=== PATIENT | male | born 1960 | race Caucasian/White ===

== ENCOUNTER 2018-06-01 12:02 | Emergency (ER) | payer OTHER ==
[~2018-06-01] VITALS: Ht 180.3 cm; Wt 95.3 kg
[~2018-06-01 12:02] MED LIST: ADDERALL 20 MG20 MG PO; PRAVASTATIN SOD20 MG PO; VIAGRA PO; VIIBRYD40 MG PO; XANAX1 MG PO
--- OUTSIDE RECORDS SUMMARY | 2018-06-01 12:06 | XMS REPORT | Clinical Summary ---
Author Author EDITH [facility] Organization [facility] Address Unknown Phone Unavailable Care Team Providers Care It Audit Manager Name Role Phone PCP Unavailable Allergies No Known Allergies Medications End Date Status Medication Sig Dispensed Refills Start Date Active dextroamphetamine-ampheta Take 20 mg by 0 mine (ADDERALL) 20 mg Tab mouth 2 (two) tablet times daily. Active ondansetron (ZOFRAN) 4 MG Take 4 mg by 0 tablet mouth 2 (two) times daily as needed for Nausea. Active dulaglutide (TRULICITY) Inject 0.75 0 0.75 mg/0.5 mL PnIj mg subcutaneousl y every 7 days. Active atorvastatin (LIPITOR) 10 Take 10 mg by 0 MG tablet mouth daily. Active insulin lispro (HUMALOG) Inject 0 100 unit/mL InPn subcutaneousl y 2 (two) times daily 35 units in am and 55 units in PM. Active vilazodone (VIIBRYD) 40 Take 40 mg by 0 mg tablet mouth daily. 12/30/2017 polyethylene glycol Take 17 g by 255 g 0 (GLYCOLAX) 17 gram/dose mouth daily 8 powder for 3 days. 01/06/2018 HYDROcodone-acetaminophen Take 1 tablet 30 tablet 0 (NORCO 10-325) 10-325 mg by mouth 8 per tablet every 6 (six) hours as needed for Pain for up to 10 days. Max Daily Amount: 4 tablets 01/01/2018 senna-docusate (SENOKOT Take 2 30 tablet 1 S) 8.6-50 mg per tablet tablets by 8 mouth daily as needed for Constipation for up to 5 days. 02/03/2018 Discontinued ARIPiprazole (ABILIFY) 15 Take 15 mg by 0 MG tablet mouth daily. 02/03/2018 Discontinued buPROPion (WELLBUTRIN XL) Take 150 mg 0 150 MG 24 hr tablet by mouth daily. 02/03/2018 Discontinued propranolol (INNOPRAN XL) Take 80 mg by 0 80 MG 24 hr capsule mouth nightly. 02/17/2018 methocarbamol (ROBAXIN) Take 1 tablet 40 tablet 0 750 MG tablet (750 mg 8 total) by mouth 4 (four) times daily for 10 days. Active Problems Problem Noted Date Loosening of hardware in spine 02/04/2018 Acute low back pain without sciatica, unspecified back pain laterality 01/29/2018 Lumbar pseudoarthrosis 2017 Lumbar spine instability 2017 Encounters Care Team Description Date Type Specialty Namrata Renner CRNA 02/04/2018 Anesthesia Event Wilbert Mcadams MD LAMINECTOMY, LUMBAR W/INTERNAL FIXATION 02/04/2018 Surgery Latoya Saldana MD Ropper, Alexander Eli, MD Acute low back pain without sciatica, unspecified back pain laterality (Primary Dx); Myalgia; Numbness; Pseudoarthrosis of lumbar spine; Lumbar pseudoarthrosis 02/03/2018 [facility] General Internal Medicine - Encounter 02/07/2018 Basilio Ross MD Sekhon, Navdeep Singh, MD Acute low back pain without sciatica, unspecified back pain laterality (Primary Dx) 01/29/2018 Emergency Emergency Medicine Wilbert Mcadams MD REMOVAL,SPINAL HARDWARE 2017 Surgery Estela Tilley MD 2017 Anesthesia Event Wilbert Mcadams MD Lumbar pseudoarthrosis (Primary Dx) 2017 [facility] General Internal Medicine - Encounter 12/27/2017 Wilbert Mcadams MD 12/18/2017 Hospital Pre-Admission Testing Encounter Wilbert Mcadams MD 12/08/2017 Orders Only Family Medicine after 05/31/2017 Social History Date Tobacco Use Types Packs/Day Years Used Quit: 12/11/2017 Former Smoker 0.5 40 Smokeless Tobacco: Never Used Tobacco Cessation: Counseling Given: Yes Alcohol Use Drinks/Week oz/Week Comments No Sex Assigned at Date Recorded Not on file Industry Job Start Date Occupation Not on file Not on file Not on file Travel End Travel History Travel Start No recent travel history available. Last Filed Vital Signs Time Taken Vital Sign Reading 02/07/2018 8:00 AM CDT Blood Pressure 109/60 02/07/2018 8:00 AM CDT Pulse 81 02/07/2018 8:00 AM CDT Temperature 36.7 C (98.1 F) 02/07/2018 8:00 AM CDT Respiratory Rate 18 02/07/2018 8:00 AM CDT Oxygen Saturation 98% - Inhaled Oxygen - Concentration 02/03/2018 11:44 PM CDT Weight 94.9 kg (209 lb 3.2 oz) 02/03/2018 11:44 PM CDT Height 180.3 cm (5' 11") 02/03/2018 11:44 PM CDT Body Mass Index 29.18 Plan of Treatment Not on file Implants Device Identifier Shelf Expiration Date Model / Serial / Lot Implanted Type Area Manufactur er 06/23/2019 [id number] / [id number] / Bone Grft Orthoblend 5cc Sm - Bone N/A: Spine MEDTRONIC: [id number] Lumbar SPINAL Implanted: Qty: 1 on 2017 by Wilbert Lal MD 12/11/2018 [id number] / / [id number] Infusion Set Bone Infuseii Lg Bone N/A: Spine MEDTRONIC: [id number] - [id number] Lumbar SPINAL Implanted: Qty: 1 on 2017 by Wilbert Canales MD 09/28/2019 [id number] / [id number] / Graft Bone Orthoblend 10cc [id number] - Bone N/A: Spine MEDTRONIC: [id number] Lumbar SPINAL Implanted: Qty: 1 on 02/04/2018 by Wilbert Lal MD 04/24/2019 [id number] / / [id number] [facility] Full Strlprep 10ml Cement/Freddie N/A: Spine FELTON:BIO [id number] - [id number] ler/Adhesi Lumbar SCI Implanted: Qty: 3 on 2017 by Wilbert Vasquez MD 09/09/2019 / / [id number] Bone Grft Vitoss Ba2x 10cc Cement/Freddie N/A: Spine ORTHOVITA - [id number] ler/Adhesi Lumbar Implanted: Qty: 1 on 2017 by Wilbert Vasquez MD 06/29/2019 [id number] / / [id number] Flseal Vhsd Full Strlprep 10ml Cement/Freddie N/A: Spine FELTON:BIO [id number] - [id number] ler/Adhesi Lumbar SCI Implanted: Qty: 1 on 02/04/2018 by Wilbert Vasquez MD 10/08/2019 [id number] / / [id number] Bone Grft Vitoss Ba2x 2.5cc - Cement/Freddie N/A: Spine ORTHOVITA [id number] ler/Adhesi Lumbar Implanted: Qty: 2 on 02/04/2018 by Wilbert Vasquez MD 04/11/2020 [id number] / / [id number] Cement Bone Surg Smplx P Full Cement/Freddie N/A: Spine MARIAH:ST [id number] - [id number] ler/Adhesi Lumbar SJ Implanted: Qty: 1 on 02/04/2018 by Wilbert Worley MD [id number] / / [id number] Scr [place] 3 Polyax 7.5x50mm Ti Spine N/A: Spine MARIAH:ST [id number] - [id number] Lumbar SJ Implanted: Qty: 4 on 2017 by Wilbert Kelly MD [id number] / / [id number] Barbed Fitting 3/8x3/8 [id number] - Spine N/A: Spine MARIAH:ST [id number] Lumbar SJ Implanted: Qty: 6 on 2017 by Wilbert Kelly MD [id number] / / [id number] Pipo Spine N/A: Spine MARIAH Implanted: Qty: 1 on 2017 by Lumbar SPINE Wilbert Mcadams MD [id number] / / [id number] Peek Cage 11 Width Spine N/A: Spine MARIAH Implanted: Qty: 1 on 2017 by Lumbar SPINE Wilbert Mcadams MD [id number] / / [id number] Peek Cage 11 Width Spine N/A: Spine MARIAH Implanted: Qty: 1 on 2017 by Lumbar SPINE Wilbert Mcadams MD [id number] / / [id number] Pipo Radius Rad 5.5x90mm [id number] - Spine N/A: Spine MARIAH:ST [id number] Lumbar SJ Implanted: Qty: 1 on 2017 by Wilbert Kelly MD [id number] / / [id number] Scr Chelsea 3 Polyax 7.5x40mm Ti Spine N/A: Spine MARIAH:ST [id number] - [id number] Lumbar SJ Implanted: Qty: 2 on 2017 by Wilbert Kelly MD [id number] / / Barbed Fitting 3/8x3/8 [id number] - Spine N/A: Spine MARIAH:ST [id number] Lumbar SJ Implanted: Qty: 6 on 02/04/2018 by Wilbert Kelly MD [id number] / / [id number] Pipo Radius Rad [id number] Spine N/A: Spine MARIAH:ST - [id number] Lumbar SJ Implanted: Qty: 1 on 02/04/2018 by Wilbert Kelly MD [id number] / / [id number] Viable Bone Matrix 5cc N/A: Spine MARIAH Implanted: Qty: 1 on 02/04/2018 by Wilbert Trent MD [id number] / / [id number] 9.5 X 40mm Poly Screw N/A: Spine MARIAH Implanted: Qty: 1 on 02/04/2018 by Wilbert Trent MD [id number] / / [id number] 10.5 X 40mm Poly Screw N/A: Spine MARIAH Implanted: Qty: 1 on 02/04/2018 by Wilbert Trent MD Procedures Comments Procedure Name Priority Date/Time Associated Diagnosis TRANSFUSION SERVICE 02/08/2018 REPORT - SCAN 5:50 PM CDT PREPARE LEUKO-REDUCED RBC STAT 02/07/2018 11:54 PM CDT TRANSFUSION SERVICE 02/07/2018 REPORT - SCAN 5:50 PM CDT POCT-GLUCOSE METER Routine 02/07/2018 8:09 AM CDT CBC W/PLT COUNT & AUTO SP 02/07/2018 DIFFERENTIAL 5:15 AM CDT CBC W/PLT COUNT & AUTO SP 02/07/2018 DIFFERENTIAL 5:15 AM CDT CBC W/PLT COUNT & AUTO STAT 02/06/2018 DIFFERENTIAL 9:09 PM CDT CBC W/PLT COUNT & AUTO STAT 02/06/2018 DIFFERENTIAL 9:09 PM CDT POCT-GLUCOSE METER Routine 02/06/2018 9:07 PM CDT TRANSFUSE LEUKO-REDUCED STAT 02/06/2018 RED BLOOD CELLS 7:53 PM CDT POCT-GLUCOSE METER Routine 02/06/2018 6:20 PM CDT POCT-GLUCOSE METER Routine 02/06/2018 12:24 PM CDT POCT-GLUCOSE METER Routine 02/06/2018 7:55 AM CDT HEMOGLOBIN AND HEMATOCRIT SP 02/06/2018 6:05 AM CDT POCT-GLUCOSE METER Routine 02/05/2018 9:01 PM CDT TRANSFUSION SERVICE 02/05/2018 REPORT - SCAN 5:50 PM CDT POCT-GLUCOSE METER Routine 02/05/2018 5:10 PM CDT CBC W/PLT COUNT & AUTO STAT 02/05/2018 DIFFERENTIAL 12:43 PM CDT CBC W/PLT COUNT & AUTO STAT 02/05/2018 DIFFERENTIAL 12:43 PM CDT POCT-GLUCOSE METER Routine 02/05/2018 12:38 PM CDT POCT-GLUCOSE METER Routine 02/05/2018 8:15 AM CDT CBC W/PLT COUNT & AUTO Routine 02/05/2018 DIFFERENTIAL 3:51 AM CDT BASIC METABOLIC PANEL (7) Routine 02/05/2018 3:51 AM CDT CBC W/PLT COUNT & AUTO Routine 02/05/2018 DIFFERENTIAL 3:51 AM CDT POCT-GLUCOSE METER Routine 02/04/2018 9:57 PM CDT POCT-GLUCOSE METER Routine 02/04/2018 6:18 PM CDT FL CEMENTING BULK MATERIAL OPERATOR IN OR 30 Routine 02/04/2018 MINUTE INCREMENTS 5:05 PM CDT LIMITED NEUROLOGICAL TCD Routine 02/04/2018 5:02 PM CDT TISSUE EXAM AP Routine 02/04/2018 4:49 PM CDT PROCEDURE W/ 02/04/2018 Spinal stenosis of lumbar INTRAOPERATIVE 12:45 PM CDT region, unspecified NEUROMONITORING whether neurogenic claudication present 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) Special Needs (PT IN PRONE POSITION, CHIDI TABLE, STYRKER, NEURO MONITORING :EMG) LAMINECTOMY,LUMBAR 02/04/2018 Spinal stenosis of lumbar W/DISCECTOMY 12:45 PM CDT region, unspecified whether neurogenic claudication present 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) Special Needs (PT IN PRONE POSITION, CHIDI TABLE, STYRKER, NEURO MONITORING :EMG) LAMINECTOMY, LUMBAR 02/04/2018 Spinal stenosis of lumbar W/INTERNAL FIXATION 12:45 PM CDT region, unspecified whether neurogenic claudication present 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) Special Needs (PT IN PRONE POSITION, CHIDI TABLE, STYRKER, NEURO MONITORING :EMG) POCT-GLUCOSE METER Routine 02/04/2018 12:44 PM CDT TYPE AND SCREEN, Routine 02/04/2018 AUTOMATED 5:30 AM CDT POCT-GLUCOSE METER Routine 02/03/2018 11:59 PM CDT CBC W/PLT COUNT & AUTO STAT 02/03/2018 DIFFERENTIAL 8:25 PM CDT PT/APTT STAT 02/03/2018 8:25 PM CDT BASIC METABOLIC PANEL (7) STAT 02/03/2018 8:25 PM CDT CBC W/PLT COUNT & AUTO STAT 02/03/2018 DIFFERENTIAL 8:25 PM CDT TRANSFUSION SERVICE 01/30/2018 REPORT - SCAN 5:53 PM CDT CBC W/PLT COUNT & AUTO STAT 01/29/2018 DIFFERENTIAL 6:24 PM CDT TYPE AND SCREEN, STAT 01/29/2018 AUTOMATED 6:24 PM CDT PT/APTT STAT 01/29/2018 6:24 PM CDT CBC W/PLT COUNT & AUTO STAT 01/29/2018 DIFFERENTIAL 6:[address] SPINE LUMBAR WITHOUT STAT 01/29/2018 IV CONTRAST 5:26 PM CDT BASIC METABOLIC PANEL (7) STAT 01/29/2018 4:35 PM CDT POCT-GLUCOSE METER Routine 12/27/2017 12:13 PM CDT POCT-GLUCOSE METER Routine 12/27/2017 7:56 AM CDT CBC (HEMOGRAM ONLY) Routine 12/27/2017 5:01 AM CDT BASIC METABOLIC PANEL (7) Routine 12/27/2017 5:01 AM CDT POCT-GLUCOSE METER Routine 12/26/2017 9:09 PM CDT POCT-GLUCOSE METER Routine 12/26/2017 5:28 PM CDT POCT-GLUCOSE METER Routine 12/26/2017 12:18 PM CDT POCT-GLUCOSE METER Routine 12/26/2017 8:33 AM CDT CBC (HEMOGRAM ONLY) Routine 12/26/2017 4:04 AM CDT BASIC METABOLIC PANEL (7) Routine 12/26/2017 4:04 AM CDT POCT-GLUCOSE METER Routine 12/25/2017 8:57 PM CDT POCT-GLUCOSE METER Routine 12/25/2017 5:46 PM CDT POCT-GLUCOSE METER Routine 12/25/2017 11:53 AM CDT POCT-GLUCOSE METER Routine 12/25/2017 7:58 AM CDT CBC (HEMOGRAM ONLY) Routine 12/25/2017 6:09 AM CDT BASIC METABOLIC PANEL (7) Routine 12/25/2017 6:09 AM CDT POCT-GLUCOSE METER Routine 2017 8:18 PM CDT POCT-GLUCOSE METER Routine 2017 6:33 PM CDT TRANSFUSION SERVICE 2017 REPORT - SCAN 5:54 PM CDT POCT-GLUCOSE METER Routine 2017 1:29 PM CDT LIMITED NEUROLOGICAL TCD Routine 2017 12:36 PM CDT FL CEMENTING BULK MATERIAL OPERATOR IN OR 30 Routine 2017 MINUTE INCREMENTS 12:27 PM CDT POCT-GLUCOSE METER Routine 2017 11:26 AM CDT TISSUE EXAM AP Routine 2017 10:33 AM CDT HGB/HCT (H&H) - STAT LAB STAT 2017 10:16 AM CDT LAMINECTOMY, LUMBAR 2017 Pain due to other W/INTERNAL FIXATION 7:00 AM CDT internal prosthetic devices, implants and grafts, initial encounter Special Needs (PRONE POSITION,N EUROMONITO RING: EMG, C-ARM, AQUAMANTYS , PROAXIS CHIDI TABLE, BOVIES X2, MARIAH, AESCULAP DRIVERS) PROCEDURE W/ 2017 Pain due to other INTRAOPERATIVE 7:00 AM CDT internal prosthetic NEUROMONITORING devices, implants and grafts, initial encounter Special Needs (PRONE POSITION,N EUROMONITO RING: EMG, C-ARM, AQUAMANTYS , PROAXIS CHIDI TABLE, BOVIES X2, MARIAH, AESCULAP DRIVERS) PROCEDURE W/ C-ARM 2017 Pain due to other 7:00 AM CDT internal prosthetic devices, implants and grafts, initial encounter Special Needs (PRONE POSITION,N EUROMONITO RING: EMG, C-ARM, AQUAMANTYS , PROAXIS CHIDI TABLE, BOVIES X2, MARIAH, AESCULAP DRIVERS) FUSION,TRANSFORAMINAL 2017 Pain due to other LUMBAR INTERBODY (TLIF) 7:00 AM CDT internal prosthetic devices, implants and grafts, initial encounter Special Needs (PRONE POSITION,N EUROMONITO RING: EMG, C-ARM, AQUAMANTYS , PROAXIS CHIDI TABLE, BOVIES X2, MARIAH, AESCULAP DRIVERS) REMOVAL,SPINAL HARDWARE 2017 Pain due to other 7:00 AM CDT internal prosthetic devices, implants and grafts, initial encounter Special Needs (PRONE POSITION,N EUROMONITO RING: EMG, C-ARM, AQUAMANTYS , PROAXIS CHIDI TABLE, BOVIES X2, MARIAH, AESCULAP DRIVERS) POCT-GLUCOSE METER Routine 2017 6:05 AM CDT PREPARE RBC Routine 12/23/2017 1:19 PM CDT TRANSFUSION SERVICE 12/19/2017 REPORT - SCAN 5:53 PM CDT TYPE AND SCREEN, Routine 12/18/2017 AUTOMATED 3:22 PM CDT after 05/31/2017 Results * TRANSFUSION SERVICE REPORT - SCAN (02/08/2018 5:50 PM CDT) Only the most recent of 6 results within the time period is included. Narrative Performed At * Prepare Leuko-Red RBC (02/07/2018 11:54 PM CDT) CROSSMATCH COMPATIBLE [facility]AFET[place] [place] Unit ABO A Pos [facility] [place] UNIT NUMBER [id number] [facility] [place] Status TRANSFUSED [facility] [place] Blood Bank Product RED BLOOD CELLS [facility] [place] PRODUCT CODE [id number] [facility] [place] CROSSMATCH COMPATIBLE SAFETRACE TX Unit ABO A Pos [facility] [place] UNIT NUMBER [id number] [facility] [place] Status TRANSFUSED [facility] [place] Blood Bank Product RED BLOOD CELLS [facility] [place] PRODUCT CODE [id number] [facility] [place] Specimen Other Performing Organization Address City/State/Zipcode Phone Number [place] [place] * POC-Glucose meter (02/07/2018 8:09 AM CDT) Only the most recent of 28 results within the time period is included. POC-Glucose Meter 164 (H)Comment: TESTED AT 70 - 110 mg/dL [facility] [address] [facility] [id number] Specimen Blood Performing Organization Address City/[facility]/Zipcode Phone Number [facility] [address] [place], [place] [id number] [facility] * CBC with platelet count + automated diff (02/07/2018 5:15 AM CDT) Only the most recent of 6 results within the time period is included. WBC 8.0 3.5 - 10.5 K/L [facility] RBC 2.85 (L) 4.63 - 6.08 M/L [facility] Hemoglobin 8.1 (L) 13.7 - 17.5 GM/DL [facility] Hematocrit 25.3 (L) 40.1 - 51.0 % [facility] MCV 88.8 79.0 - 92.2 fL [facility] MCH 28.4 25.7 - 32.2 pg [facility] MCHC 32.0 (L) 32.3 - 36.5 GM/DL [facility] RDW 14.6 (H) 11.6 - 14.4 % [facility] Platelets 302 150 - 450 K/CU MM [facility] MPV 9.3 (L) 9.4 - 12.4 fL [facility] nRBC 0 0 - 0 /100 WBC [facility] % Neutros 49 % [facility] % Lymphs 37 % [facility] % Monos 11 % [facility] % Eos 2 % [facility] % Baso 1 % [facility] # Neutros 3.87 1.78 - 5.38 K/L [facility] # Lymphs 2.95 1.32 - 3.57 K/L [facility] # Monos 0.84 (H) 0.30 - 0.82 K/L [facility] # Eos 0.15 0.04 - 0.54 K/L [facility] # Baso 0.06 0.01 - 0.08 K/L [facility] Immature 1 0 - 1 % [facility] Granulocytes-Relative [facility] Specimen Blood - Arm, Left Performing Organization Address City/[facility] [place] [address] [phone] [place] [address] * Transfuse Leuko-Red RBC (02/06/2018 7:53 PM CDT) Only the most recent of 2 results within the time period is included. * Hemoglobin and hematocrit (02/06/2018 6:05 AM CDT) Hemoglobin 6.5 (L) 13.7 - 17.5 GM/DL [facility] Hematocrit 21.0 (L) 40.1 - 51.0 % [facility] Specimen Blood - Arm, Left Performing Organization Address City/[facility] [place] [address] [phone] [place] [address] * Basic Metabolic Panel (02/05/2018 3:51 AM CDT) Only the most recent of 6 results within the time period is included. Sodium 136 136 - 145 meq/L [facility] Potassium 4.6 3.5 - 5.1 meq/L [facility] Chloride 104 98 - 107 meq/L [facility] CO2 26 22 - 29 meq/L [facility] BUN 18 7 - 21 mg/dL [facility] Creatinine 1.09 0.57 - 1.25 mg/dL [facility] Glucose 193 (H) 70 - 105 mg/dL [facility] Calcium 8.6 8.4 - 10.2 mg/dL [facility] EGFR 69Comment: ESTIMATED GFR IS mL/min/1.[address] [facility] NOT ACCURATE CREATININE [facility] CLEARANCE IN PREDICTING GLOMERULAR FILTRATION RATE. ESTIMATED GFR IS NOT APPLICABLE FOR DIALYSIS PATIENTS. Specimen Blood - Arm, Right Performing Organization Address City/State/Zipcode Phone Number [facility] [address] [place] [address] MEDICAL CENTER * [place] poultry grader in or 30 minute increments (02/04/2018 5:05 PM CDT) Only the most recent of 2 results within the time period is included. Narrative Performed At FINAL REPORT [facility] Fluoroscopy 2 views intraoperative 02/04/2018 5:14 PM CLINICAL HISTORY: Instrument localization COMPARISON: None available IMPRESSION: Please correlate imaging report findings with the procedure note prepared by Dr. Mcadams, as an intra-procedure imaging consultation was not requested. Reported fluoroscopy time: 6.4 seconds. Signed: Merritt Almaraz MD Report Verified Date/Time:02/04/2018 17:14:32 Reading Location: [facility] Radiology Reading Room Procedure Note Interface, External Ris In - 02/04/2018 5:16 PM CDT FINAL REPORT Fluoroscopy 2 views intraoperative 02/04/2018 5:14 PM CLINICAL HISTORY: Instrument localization COMPARISON: None available IMPRESSION: Please correlate imaging report findings with the procedure note prepared by Dr. Mcadams, as an intra-procedure imaging consultation was not requested. Reported fluoroscopy time: 6.4 seconds. Signed: Merritt Almaraz MD Report Verified Date/Time: 02/04/2018 17:14:32 Reading Location: [facility] Radiology Reading Room Performing Organization Address City/State/Zipcode Phone Number [facility] * Neuro intraoperative monitoring (02/04/2018 5:02 PM CDT) Narrative Performed At INTRAOPERATIVE MONITORING REPORT JEANNE UMAÑA Patient Name: Remberto Powers [facility] Surgery Date: 02/01/18 Anderson Pro:S/N - [id number] Monitoring began at 1428 and ended at 1701 Surgeon: Wilbert Mcadams M.D. Examining Physician : Oskar Agee M.D. Monitoring Technologist: KYREE Beach Procedure: L3-S1 redo of fixation & fusion Stimulation Parameters: Cortical screws stimulated by the surgeon Rate 2.1Hz, Intensity 0-20mA, Duration 0.2ms Filters 20-2KHz, Notch Off Free-running and triggered EMG of bilateral Vastus Lateralis (L2-4), Tibialis Anterior (L4-5), and Lateral Gastrocnemius (L5-S2) muscle groups. Description: Intraoperative neurophysiological monitoring was performed using free-running EMGs. A real- time connection with the examining neurologist was established and maintained throughout the operative procedure by the monitoring technologist. Free-running EMG of L2-S2 innervated muscle groups was monitored continuously throughout the operative procedure with no neurotonic discharges seen at baselines. Surgeon aware. Some sporadic EMG firing was present during procedure but at closing all EMG stable with baselines. Triggered EMG was performed via a sterile Prass probe held by the surgeon. The resulting intensity values required to elicit a response from each cortical screw was reported to the surgeon. Resulting intensity values required to elicit a response from each cortical screw placement were at least 9mA or above. Surgeon aware of all responses during the procedure and at closing of case. Conclusion: Absence of sustained neurotonic discharges on free-running EMG suggests that the nerve roots monitored remained undisturbed. Oskar Agee M.D M54.5, S32.009K Procedure Note Interface, External Ris In - 02/08/2018 3:17 PM CDT INTRAOPERATIVE MONITORING REPORT Patient Name: Remberto Powers [facility] Surgery Date: 02/01/18 Anderson Pro:S/N - [id number] Monitoring began at 1428 and ended at 1701 Surgeon: Wilbert Mcadams M.D. Examining Physician : Oskar Agee M.D. Monitoring Technologist: KYREE Beach Procedure: L3-S1 redo of fixation & fusion Stimulation Parameters: Cortical screws stimulated by the surgeon Rate 2.1Hz, Intensity 0-20mA, Duration 0.2ms Filters 20-2KHz, Notch Off Free-running and triggered EMG of bilateral Vastus Lateralis (L2-4), Tibialis Anterior (L4-5), and Lateral Gastrocnemius (L5-S2) muscle groups. Description: Intraoperative neurophysiological monitoring was performed using free-running EMGs. A real- time connection with the examining neurologist was established and maintained throughout the operative procedure by the monitoring technologist. Free-running EMG of L2-S2 innervated muscle groups was monitored continuously throughout the operative procedure with no neurotonic discharges seen at baselines. Surgeon aware. Some sporadic EMG firing was present during procedure but at closing all EMG stable with baselines. Triggered EMG was performed via a sterile Prass probe held by the surgeon. The resulting intensity values required to elicit a response from each cortical screw was reported to the surgeon. Resulting intensity values required to elicit a response from each cortical screw placement were at least 9mA or above. Surgeon aware of all responses during the procedure and at closing of case. Conclusion: Absence of sustained neurotonic discharges on free-running EMG suggests that the nerve roots monitored remained undisturbed. Oskar Agee M.D M54.5, S32.009K Performing Organization Address City/State/[facility] Phone Number [facility] * Tissue Exam (02/04/2018 4:49 PM CDT) Only the most recent of 2 results within the time period is included. Case Report Surgical Pathology [facility] Report [facility] Case: [id number] Authorizing Provider:Wilbert Mcadams MDCollected: 02/04/2018 1649 Ordering Location: [facility] PERIOPERATIVE Received: 02/05/2018 0814 SERVICES Pathologist: Roni Mayorga MD Specimen:Explant, PREVIOUS LUMBAR INSTRUMENTATION DIAGNOSIS HARDWARE, LUMBAR SPINE, [facility] REMOVAL: [facility] - HARDWARE (GROSS DIAGNOSIS) CB/DB/pl Signing Pathologist Direct Phone Line: [phone] CPT Code(s) 465[address] [facility] CLINICAL HISTORY Spinal stenosis of lumbar [facility] region, hardware failure of [facility] anterior column of spine SPECIMEN SOURCE Previous lumbar [facility] instrumentation [facility] GROSS DESCRIPTION Received fresh labeled [facility] "explant", description [facility] "previous lumbar instrumentation" are two metallic rods measuring 9.0 cm and 10.0 cm in length and 0.3 cm in diameter, two metallic screws each measuring 6.0 cm in length and 0.5 cm in diameter, and 6 metallic washers each measuring 1.0 cm in diameter. The specimen is for gross identification only. DB/pl Specimen Tissue - Explant Performing Organization Address [facility] [place] [address] [phone] [address] * Type and screen, automated (02/04/2018 5:30 AM CDT) Only the most recent of 3 results within the time period is included. ABO/RH AUTOMATED (BEAKER) A POSITIVE [facility] Ab Scrn NEGATIVE [facility] Specimen Blood Performing Organization Address City/[facility]/Zipcode Phone Number [address] [address] [facility] * PT/aPTT (02/03/2018 8:25 PM CDT) Only the most recent of 2 results within the time period is included. Protime 12.8 11.7 - 14.7 seconds [facility] INR 1.0 <=5.9 [facility] PTT 33.1 22.5 - 36.0 seconds [facility] Specimen Blood - Arm, Right Narrative Performed At RECOMMENDED COUMADIN/WARFARIN INR THERAPY RANGES [facility] STANDARD DOSE: 2.0 - 3.0 Includes: PROPHYLAXIS for venous thrombosis, [facility] systemic embolization; TREATMENT for venous thrombosis and/or pulmonary embolus. HIGH RISK: Target INR is 2.5-3.5 for patients with mechanical heart valves. Performing Organization Address City/State/Zipcode Phone Number [facility] [address] [place] [address] [facility] * CT spine lumbar without IV contrast (01/29/2018 5:26 PM CDT) Narrative Performed At FINAL REPORT [facility] CT Lumbar spine CLINICAL HISTORY: Low back pain, rapidly progressive neuro deficit BACK PAIN TECHNIQUE: Contiguous noncontrast axial images of the lumbar spine with coronal and sagittal reformations to assess the alignment. This exam was performed according to the departmental dose optimization program which includes automated exposure control, adjustment of the mA and/or kV according to the patient size, and/or use of an iterative reconstruction technique. COMPARISON: None FINDINGS: The patient is status post bilateral posterior spinal pipo and pedicle screw fusion of L3-S1; except at L5, where bilateral pedicle screws extend into the vertebral bodies, but are not connected to the spinal rods. Additionally, the right spinal pipo is discontinuous from the right S1 pedicle screw. Prominent lucency surrounding the bilateral S1 screws is compatible with either loosening or infection. Interbody strut grafts are seen at L3-L4, L4-L5, and L5-S1. One of the L2-L3 strut grafts extends 6 mm beyond the posterior vertebral body margin into the right lateral central canal. There is concavity of the S1 superior endplate below the strut graft, with subcortical lucency compatible with the fracture. The lumbar vertebral body heights are otherwise maintained. There are chronic fractures through the left L3 and L4 transverse processes. The lumbar curvature and alignment is maintained. There are decompressive laminectomies of L3-4, L4-L5, L5-S1. Please note that the central canal contents are not well evaluated due to the lack of intrathecal contrast and metallic streak effect. There are postoperative edema changes in the midline lower back soft tissues. IMPRESSION: Status post L3-S1 fusion as discussed above. Specifically, lucency surrounding the bilateral S1 pedicle screws is compatible with either loosening versus infection. The right S1 pedicle screws disconnected from the spinal pipo, as are the bilateral L5 screws. A L2-L3 strut graft extends posteriorly into the dorsal right central canal. S1 superior endplate compression fracture underlying the strut graft. Signed: Susu Roy MD Report Verified Date/Time:01/29/2018 17:55:20 Reading Location: [facility] Radiology Reading Room Procedure Note Interface, External Ris In - 01/29/2018 5:57 PM CDT FINAL REPORT CT Lumbar spine CLINICAL HISTORY: Low back pain, rapidly progressive neuro deficit BACK PAIN TECHNIQUE: Contiguous noncontrast axial images of the lumbar spine with coronal and sagittal reformations to assess the alignment. This exam was performed according to the departmental dose optimization program which includes automated exposure control, adjustment of the mA and/or kV according to the patient size, and/or use of an iterative reconstruction technique. COMPARISON: None FINDINGS: The patient is status post bilateral posterior spinal pipo and pedicle screw fusion of L3-S1; except at L5, where bilateral pedicle screws extend into the vertebral bodies, but are not connected to the spinal rods. Additionally, the right spinal pipo is discontinuous from the right S1 pedicle screw. Prominent lucency surrounding the bilateral S1 screws is compatible with either loosening or infection. Interbody strut grafts are seen at L3-L4, L4-L5, and L5-S1. One of the L2-L3 strut grafts extends 6 mm beyond the posterior vertebral body margin into the right lateral central canal. There is concavity of the S1 superior endplate below the strut graft, with subcortical lucency compatible with the fracture. The lumbar vertebral body heights are otherwise maintained. There are chronic fractures through the left L3 and L4 transverse processes. The lumbar curvature and alignment is maintained. There are decompressive laminectomies of L3-4, L4-L5, L5-S1. Please note that the central canal contents are not well evaluated due to the lack of intrathecal contrast and metallic streak effect. There are postoperative edema changes in the midline lower back soft tissues. IMPRESSION: Status post L3-S1 fusion as discussed above. Specifically, lucency surrounding the bilateral S1 pedicle screws is compatible with either loosening versus infection. The right S1 pedicle screws disconnected from the spinal pipo, as are the bilateral L5 screws. A L2-L3 strut graft extends posteriorly into the dorsal right central canal. S1 superior endplate compression fracture underlying the strut graft. Signed: Susu Roy MD Report Verified Date/Time: 01/29/2018 17:55:20 Reading Location: [facility] Radiology Reading Room Performing Organization Address City/State/Zipcode Phone Number [facility] * CBC (Hemogram only) (12/27/2017 5:01 AM CDT) Only the most recent of 3 results within the time period is included. WBC 8.2 3.5 - 10.5 K/L [facility] RBC 2.59 (L) 4.63 - 6.08 M/L [facility] Hemoglobin 8.5 (L) 13.7 - 17.5 GM/DL [facility] Hematocrit 25.0 (L) 40.1 - 51.0 % [facility] MCV 96.5 (H) 79.0 - 92.2 fL [facility] MCH 32.8 (H) 25.7 - 32.2 pg [facility] MCHC 34.0 32.3 - 36.5 GM/DL [facility] RDW 13.2 11.6 - 14.4 % [facility] Platelets 201 150 - 450 K/CU MM [facility] MPV 9.7 9.4 - 12.4 fL [facility] nRBC 0 0 - 0 /100 WBC [facility] Specimen Blood Performing Organization Address City/State/Zipcode Phone Number [facility] [address] [place] [address] [facility] * Neuro intraoperative monitoring (2017 12:36 PM CDT) Narrative Performed At INTRAOPERATIVE MONITORING REPORT JEANNE UMAÑA Patient Name: Remberto Powers [facility] Surgery Date: 2017 Youneeq Pro: [id number] Monitoring began at 650 and ended at 1236 Surgeon: Wilbert Mcadams MD Examining Physician : Oskar Agee MD Monitoring Technologists: KYREE Santos Procedure: Revision, Fusion L3-S1 Stimulation Parameters: Pedicle/Cortical screws individually stimulated by the surgeon Rate 2.1Hz, Intensity 0-20mA, Duration 0.2ms Filters 20-2KHz, Notch Off Free-running and Triggered EMG of Vastus Lateralis (L2-4), Tibialis Anterior (L4-5), and Lateral Gastrocnemius (L5-S2) muscle groups. Description : Intraoperative neurophysiological monitoring was performed using a combination of free-running and Triggered EMG and Free-running EMGs. A real-time connection with the examining neurologist was established and maintained throughout the operative procedure by the monitoring technologist. Pedicle/Cortical Screw Triggered EMG was performed following the placement of screw via a sterile Prass probe held by the surgeon. The resulting intensity values required to elicit a response from each placement were reported to the surgeon. Free-running EMG of L2-S2 innervated muscle groups was monitored continuously throughout the operative procedure with some sporadic neurotonic emg activity that was reported to the surgeon. At closing, all EMG was quiet and responses were judged to be essentially unchanged from those of post-positioning baselines. Conclusion : These results suggest the absence of untoward, secondary effects on posterior column function as a consequence of this surgical procedure. All values elicited by triggered EMG to verify pedicle screw placement and nerve root function were reported to the surgeon. Surgeon aware of all responses during case and at closing. Oskar Agee MD S32.009K Procedure Note Interface, External Ris In - 01/27/2018 10:42 AM CDT INTRAOPERATIVE MONITORING REPORT Patient Name: Remberto Powers [facility] Surgery Date: 2017 Vladislav Pro: [id number] Monitoring began at 650 and ended at 1236 Surgeon: Wilbert Mcadams MD Examining Physician : Oskar Agee MD Monitoring Technologists: KYREE Santos Procedure: Revision, Fusion L3-S1 Stimulation Parameters: Pedicle/Cortical screws individually stimulated by the surgeon Rate 2.1Hz, Intensity 0-20mA, Duration 0.2ms Filters 20-2KHz, Notch Off Free-running and Triggered EMG of Vastus Lateralis (L2-4), Tibialis Anterior (L4-5), and Lateral Gastrocnemius (L5-S2) muscle groups. Description : Intraoperative neurophysiological monitoring was performed using a combination of free-running and Triggered EMG and Free-running EMGs. A real-time connection with the examining neurologist was established and maintained throughout the operative procedure by the monitoring technologist. Pedicle/Cortical Screw Triggered EMG was performed following the placement of screw via a sterile Prass probe held by the surgeon. The resulting intensity values required to elicit a response from each placement were reported to the surgeon. Free-running EMG of L2-S2 innervated muscle groups was monitored continuously throughout the operative procedure with some sporadic neurotonic emg activity that was reported to the surgeon. At closing, all EMG was quiet and responses were judged to be essentially unchanged from those of post-positioning baselines. Conclusion : These results suggest the absence of untoward, secondary effects on posterior column function as a consequence of this surgical procedure. All values elicited by triggered EMG to verify pedicle screw placement and nerve root function were reported to the surgeon. Surgeon aware of all responses during case and at closing. Oskar Agee MD S32.009K Performing Organization Address City/State/Zipcode Phone Number [facility] * HGB/HCT (H&H)-Stat Lab (2017 10:16 AM CDT) Hemoglobin 13.1 13.0 - 16.8 g/dL [facility] Hematocrit 39.0 (L) 40.0 - 50.0 % [facility] Specimen Blood, Arterial Performing Organization Address City/[facility]/Zipcode Phone Number [facility] [address] [place] [address] MED[facility] * Prepare RBC (12/23/2017 1:19 PM CDT) CROSSMATCH COMPATIBLE SAFETRACE TX Unit ABO A Pos SAFETRACE TX UNIT NUMBER [id number] SAFETRACE TX Status READY SAFETRACE TX Blood Bank Product RED BLOOD CELLS SAFETRACE TX PRODUCT CODE [id number] SAFETRACE TX CROSSMATCH COMPATIBLE SAFETRACE TX Unit ABO A Pos SAFETRACE TX UNIT NUMBER [id number] SAFETRACE TX Status READY SAFETRACE TX Blood Bank Product RED BLOOD CELLS SAFETRACE TX PRODUCT CODE [id number] SAFETRACE TX Performing Organization Address City/[facility]/Zipcode Phone Number SAFETRACE [place] after 05/31/2017 Insurance Payer Benefit Subscriber ID Type Phone Address Plan / Group [facility] xxxxxxxxx HMO/POS CARE POS SELECT CHOICE Advance Directives For more information, please contact: [address] [phone] Date Inactivated Comments Code Status Date Activated 02/08/2018 5:43 AM Full Code 02/03/2018 11:38 PM This code status was determined by: Patient 12/27/2017 6:55 PM Full Code 2017 8:26 PM This code status was determined by: Patient 2017 8:26 PM Full Code 2017 5:57 AM This code status was determined by: Patient
--- OUTSIDE RECORDS SUMMARY | 2018-06-01 12:07 | XMS REPORT | CCD ---
Author Author Auto Generated Organization [facility] Address Unknown Phone Unavailable Care Team Providers Care Supervisor Wound Name Role Phone Harman Mcdonald CP Allergies, Adverse Reactions, Alerts Substance Reaction Status NKDA Active Problem List Condition Effective Dates Status ADHD - Attention deficit disorder with hyperactivity Resolved Pain Active Medications Medication Instructions Start Date End Date Status Lactated Ringers IV 1,000 mL, Rate: 125 ml/hr, Infuse 08/08/2013 08/10/2013 Discontinued 1,000 mL over: 8 hr, Route: IV, Dosing Weight 86.364 kg, Total Volume: 1,000, Start date: 08/08/13 23:26:00, Duration: 30 day, Stop date: 09/07/13 23:25:00 Saline Flush 0.9% 5 ml, Route: IVP, Drug Form: INJ, 08/09/2013 08/10/2013 Discontinued Dosing Weight 86.364, kg, PRN, PRN Line Flush, Start date: 08/09/13 2:57:00, Duration: 30 day, Stop date: 09/08/13 2:56:00(Same as: BD Posiflush) acetaminophen-hydroc 1 tab, Route: PO, Drug Form: TAB, 08/09/2013 08/10/2013 Discontinued odone 325 mg-10 mg Dosing Weight 86.364, kg, Q4H, PRN oral tablet Pain Score 4-6, Start date: 08/09/13 2:57:00, Duration: 30 day, Stop date: 09/08/13 2:56:00Do not exceed 4gm/day of acetaminophen. (Same as: [place] 325/10) docusate 100 mg, 1 cap, Route: PO, Drug 08/09/2013 08/10/2013 Discontinued form: CAP, BID, Dosing Weight 86.364, kg, PRN Constipation, Start date: 08/09/13 2:57:00, Duration: 30 day, Stop date: 09/08/13 2:56:00(Same as: Colace) (Do Not Crush) morphine Sulfate 2 mg, 1 mL, Route: IVP, Drug form: 08/09/2013 08/10/2013 Discontinued INJ, Q3H, Dosing Weight 86.364, kg, PRN Pain Score 4-6, Start date: 08/09/13 2:57:00, Duration: 30 day, Stop date: 09/08/13 2:56:00(Same as:MORPhine Sulfate) ondansetron 4 mg, 2 mL, Route: IVP, Drug form: 08/09/2013 08/10/2013 Discontinued INJ, Q8H, Dosing Weight 86.364, kg, PRN Nausea & Vomiting, Start date: 08/09/13 2:57:00, Duration: 30 day, Stop date: 09/08/13 2:56:00(Same as: Zofran) vilazodone 40 mg 0 Refill(s) 08/09/2013 Ordered oral tablet NS (Bolus) IV 1,000 1,000 mL, Rate: 1,000 ml/hr, Infuse 08/08/2013 08/08/2013 Completed mL over: 1 hr, Route: IV, Dosing Weight 86.364 kg, Total Volume: 1,000, Priority: STAT, Start date: 08/08/13 18:50:00, Duration: 1 doses or times, Stop date: 08/08/13 19:49:00, Bolus Dose Bolus Dose Zofran 4 mg, 2 mL, Route: IVP, Drug form: 08/08/2013 08/09/2013 Completed INJ, ONCE, Dosing Weight 86.364, kg, Priority: STAT, Start date: 08/08/13 18:50:00, Stop date: 08/08/13 18:50:00(Same as: Zofran) morphine Sulfate 4 mg, 2 mL, Route: IVP, Drug form: 08/08/2013 08/09/2013 Completed INJ, ONCE, Dosing Weight 86.364, kg, Priority: STAT, Start date: 08/08/13 18:50:00, Stop date: 08/08/13 18:50:00(Same as:MORPhine Sulfate) Silvadene 1% topical 1 appl, Route: TOP, ONCE, Drug 08/08/2013 08/08/2013 Completed cream form: CRM, Priority: Stat, Start date: 08/08/13 18:50:00, Stop date: 08/08/13 18:50:00(Same as: Silvadene) NS (Bolus) IV 1,000 1,000 mL, Rate: 1,000 ml/hr, Infuse 08/08/2013 08/09/2013 Completed mL over: 1 hr, Route: IV, Dosing Weight 86.364 kg, Total Volume: 1,000, Priority: STAT, Start date: 08/08/13 23:24:00, Duration: 1 doses or times, Stop date: 08/09/13 0:23:00, Bolus Dose Bolus Dose pneumococcal 0.5 ml, Route: IM, Drug Form: INJ, 08/10/2013 08/10/2013 Canceled 23-valent vaccine Daily, Start date: 08/10/13 9:00:00, Duration: 1 doses or times, Stop date: 08/10/13 9:00:00(Same as: Pneumovax 23) Refrigerate Tylenol 975 mg, Route: PO, Drug form: TAB, 08/08/2013 08/08/2013 Completed ONCE, Dosing Weight 86.364, kg, Priority: STAT, Start date: 08/08/13 21:07:00, Stop date: 08/08/13 21:07:00 Vital Signs Most recent to oldest [Reference Range]: 1 2 3 Height 180.34 cm (08/09/2013 03:15:00) 180.34 cm (08/08/2013 18:41:00) Temperature Oral [96.4-99.1 DegF] 98.3 DegF (08/09/2013 20:00:00) 98 DegF (08/09/2013 16:00:00) 97.6 DegF (08/09/2013 12:00:00) Systolic Blood Pressure [90-140 mmHg] 135 mmHg (08/09/2013 20:00:00) 143 mmHg *HI* (08/09/2013 16:00:00) 130 mmHg (08/09/2013 12:00:00) Diastolic Blood Pressure [60-90 mmHg] 68 mmHg (08/09/2013 20:00:00) 84 mmHg (08/09/2013 16:00:00) 78 mmHg (08/09/2013 12:00:00) Respiratory Rate [14-20 BRMIN] 18 BRMIN (08/09/2013 20:00:00) 20 BRMIN (08/09/2013 16:00:00) 16 BRMIN (08/09/2013 12:00:00) Peripheral Pulse Rate [60-100 bpm] 61 bpm (08/09/2013 20:00:00) 63 bpm (08/09/2013 16:00:00) 68 bpm (08/09/2013 12:00:00) Weight 86.364 kg (08/09/2013 03:15:00) 86.364 kg (08/08/2013 18:41:00) Results CHEMISTRY Most recent to oldest [Reference Range]: 1 2 Sodium Lvl [135-145 mEq/L] 141 mEq/L (08/09/2013 05:53:00) 142 mEq/L (08/08/2013 18:37:00) Potassium Lvl [3.5-5.1 mEq/L] 4.0 mEq/L (08/09/2013 05:53:00) 4.1 mEq/L (08/08/2013 18:37:00) Chloride Lvl [95-109 mEq/L] 107 mEq/L (08/09/2013 05:53:00) 105 mEq/L (08/08/2013 18:37:00) CO2 [24-32 mEq/L] 27 mEq/L (08/09/2013 05:53:00) 26 mEq/L (08/08/2013 18:37:00) AGAP [10.0-20.0 mEq/L] 11.0 mEq/L (08/09/2013 05:53:00) 15.1 mEq/L (08/08/2013 18:37:00) Creatinine Lvl [0.5-1.4 mg/dL] 1.0 mg/dL (08/09/2013 05:53:00) 1.0 mg/dL (08/08/2013 18:37:00) eGFR 86 mL/min/1.73m2 1 *NA* (08/09/2013 05:53:00) 86 mL/min/1.73m2 2 *NA* (08/08/2013 18:37:00) BUN [7-22 mg/dL] 10 mg/dL (08/09/2013 05:53:00) 11 mg/dL (08/08/2013 18:37:00) B/C Ratio [6-25] 10 (08/09/2013 05:53:00) 11 (08/08/2013 18:37:00) Glucose Lvl [70-99 mg/dL] 99 mg/dL 3 (08/09/2013 05:53:00) 132 mg/dL 4 *HI* (08/08/2013 18:37:00) Total Protein [6.4-8.4 g/dL] 6.1 g/dL *LOW* (08/09/2013 05:53:00) 7.9 g/dL (08/08/2013 18:37:00) Albumin Lvl [3.5-5.0 g/dL] 3.1 g/dL *LOW* (08/09/2013 05:53:00) 3.9 g/dL (08/08/2013 18:37:00) Globulin [2.0-4.0 g/dL] 3.0 g/dL (08/09/2013 05:53:00) 4.0 g/dL (08/08/2013 18:37:00) A/G Ratio [0.7-1.6] 1.0 (08/09/2013 05:53:00) 1.0 (08/08/2013 18:37:00) Calcium Lvl [8.5-10.5 mg/dL] 8.4 mg/dL *LOW* (08/09/2013 05:53:00) 8.8 mg/dL (08/08/2013 18:37:00) ALT [0-65 unit/L] 27 unit/L (08/09/2013 05:53:00) 32 unit/L (08/08/2013 18:37:00) AST [0-37 unit/L] 21 unit/L (08/09/2013 05:53:00) 22 unit/L (08/08/2013 18:37:00) Alk Phos [39-136 unit/L] 70 unit/L (08/09/2013 05:53:00) 81 unit/L (08/08/2013 18:37:00) Bili Total [0.2-1.3 mg/dL] 0.5 mg/dL (08/09/2013 05:53:00) 0.3 mg/dL (08/08/2013 18:37:00) Lactic Acid Lvl [0.5-2.2 mMol/L] 1.2 mMol/L (08/08/2013 00:16:00) Total CK [12-191 unit/L] 310 unit/L *HI* (08/08/2013 00:16:00) 1Result Comment: The eGFR is calculated using the CKD-EPI formula. In most young, healthy individuals the eGFR will be >90 mL/min/1.73m2. The eGFR declines with age. An eGFR of 60-89 may be normal in some populations, particularly the elderly, for whom the CKD-EPI formula has not been extensively validated. Use of the eGFR is not recommended in the following populations: Individuals with unstable creatinine concentrations, including patients and those with serious co-morbid conditions. Patients with extremes in muscle mass or diet. The data above are obtained from the National Kidney Disease Education Program ( NKDEP) which additionally recommends that when the eGFR is used in patients with extremes of body mass index for purposes of drug dosing, the eGFR should be mul tiplied by the estimated BMI. 2Result Comment: The eGFR is calculated using the CKD-EPI formula. In most young, healthy individuals the eGFR will be >90 mL/min/1.73m2. The eGFR declines with age. An eGFR of 60-89 may be normal in some populations, particularly the elderly, for whom the CKD-EPI formula has not been extensively validated. Use of the eGFR is not recommended in the following populations: Individuals with unstable creatinine concentrations, including patients and those with serious co-morbid conditions. Patients with extremes in muscle mass or diet. The data above are obtained from the National Kidney Disease Education Program ( NKDEP) which additionally recommends that when the eGFR is used in patients with extremes of body mass index for purposes of drug dosing, the eGFR should be mul tiplied by the estimated BMI. 3Interpretive Data: Adult reference range values reflect the clinical guidelines of the [place] [employer]. 4Interpretive Data: Adult reference range values reflect the clinical guidelines of the [place] [employer]. HEMATOLOGY Most recent to oldest [Reference Range]: 1 2 WBC [3.7-10.4 K/CMM] 8.0 K/CMM (08/09/2013 05:53:00) 16.3 K/CMM *HI* (08/08/2013 18:37:00) RBC [4.70-6.10 M/CMM] 3.61 M/CMM *LOW* (08/09/2013 05:53:00) 4.32 M/CMM *LOW* (08/08/2013 18:37:00) Hgb [14.0-18.0 g/dL] 11.4 g/dL *LOW* (08/09/2013 05:53:00) 13.5 g/dL *LOW* (08/08/2013 18:37:00) Hct [42.0-54.0 %] 34.4 % *LOW* (08/09/2013 05:53:00) 40.7 % *LOW* (08/08/2013 18:37:00) MCV [80.0-94.0 fL] 95.4 fL *HI* (08/09/2013 05:53:00) 94.1 fL *HI* (08/08/2013 18:37:00) MCH [27.0-31.0 pg] 31.5 pg *HI* (08/09/2013 05:53:00) 31.2 pg *HI* (08/08/2013 18:37:00) MCHC [32.0-36.0 g/dL] 33.0 g/dL (08/09/2013 05:53:00) 33.2 g/dL (08/08/2013 18:37:00) RDW [11.5-14.5 %] 13.4 % (08/09/2013 05:53:00) 13.0 % (08/08/2013 18:37:00) Platelet [133-450 K/CMM] 292 K/CMM (08/09/2013 05:53:00) 345 K/CMM (08/08/2013 18:37:00) MPV [7.4-10.4 fL] 7.1 fL *LOW* (08/09/2013 05:53:00) 7.3 fL *LOW* (08/08/2013 18:37:00) Segs [45.0-75.0 %] 52.3 % (08/09/2013 05:53:00) 75.0 % (08/08/2013 18:37:00) Bands [0.0-11.0 %] 8.0 % (08/08/2013 18:37:00) Lymphocytes [20.0-40.0 %] 35.8 % (08/09/2013 05:53:00) 12.0 % *LOW* (08/08/2013 18:37:00) Monocytes [2.0-12.0 %] 9.9 % (08/09/2013 05:53:00) 4.0 % (08/08/2013 18:37:00) Eosinophils [0.0-4.0 %] 1.6 % (08/09/2013 05:53:00) 1.0 % (08/08/2013 18:37:00) Basophils [0.0-1.0 %] 0.4 % (08/09/2013 05:53:00) Segs-Bands # [1.5-8.1 K/CMM] 4.2 K/CMM (08/09/2013 05:53:00) 13.5 K/CMM *HI* (08/08/2013 18:37:00) Lymphocytes # [1.0-5.5 K/CMM] 2.9 K/CMM (08/09/2013 05:53:00) 2.0 K/CMM (08/08/2013 18:37:00) Monocytes # [0.0-0.8 K/CMM] 0.8 K/CMM (08/09/2013 05:53:00) 0.7 K/CMM (08/08/2013 18:37:00) Eosinophils # [0.0-0.5 K/CMM] 0.1 K/CMM (08/09/2013 05:53:00) 0.2 K/CMM (08/08/2013 18:37:00) Basophils # [0.0-0.2 K/CMM] 0.0 K/CMM (08/09/2013 05:53:00) RBC Morph Normal (08/08/2013 18:37:00) Plt Morph Normal (08/08/2013 18:37:00) IMMUNOLOGY Most recent to oldest [Reference Range]: 1 2 CDC HIV 4th GEN [Negative] Negative (08/08/2013 00:16:00) Procedures Procedures Date Related Diagnosis Anesthesia for arthroscopic procedure of knee joint1 Procedure on back 1bilateral
--- OUTSIDE RECORDS SUMMARY | 2018-06-01 12:07 | XMS REPORT ---
Author Author [facility] Address Unknown Phone Unavailable Care Team Providers Care Hotel Reservation Agent Name Role Phone SIRENA BORRERO Unavailable Unavailable MARU QUINTANILLA Unavailable Unavailable ELENA MACKENZIE Unavailable Unavailable Problems This patient has no known problems. Allergies, Adverse Reactions, Alerts This patient has no known allergies or adverse reactions. Medications This patient has no known medications. Results Test Description Test Time Test Comments Text Results Atomic Results Result Comments SENIOR PRIVATE CLIENT ADVISOR, NEURO INTRAOPERATIVE MONITORING 2018-02-08 15:17:00 Reason for exam:->intra op neuro monitoring INTRAOPERATIVE MONITORING REPORT Patient Name: Kareen Powers [facility] Surgery Date: 02/01/18 [place] Pro:S/N - [id number] Monitoring began at 1428 and ended at 1701 Surgeon: Wilbert Mackenzie M.D. Examining Physician : Oskar Agee M.D. [...] remained undisturbed. Oskar Agee M.D M54.5, S32.009K UE EXAM 2018-02-08 14:56:00 Surgical Pathology Report Case: [id number] Authorizing Provider: Wilbert Mackenzie MD Collected: 02/04/2018 1649 Ord ering Location: [facility] PERIOPERATIVE Received: 02/05/2018 0814 SERVICES Pathologist: Roni Mayorga MD Specimen: Explant, PREVIOUS LUMBAR INSTRUMENTATION HARDWARE, LUMBAR SPINE, REMOVAL: - HARDWARE (GROSS DIAGNOSIS)CB/DB/pl Signing Pathologist Direct Phone Line: [phone] signed by Roni Mayorga MD on 02/08/2018 at 2:56 [id number] stenosis of lumbar region, hardware failure of anterior column of spine Previous lumbar instrumentationReceived fresh labeled "explant", description "previous lumbar instrumentation" are two metallic rods measuring 9.0 cm and 10.0 cm in length and 0.3 cm in diameter, two metallic screws each measuring 6.0 cm in length and 0.5 cm in diameter, and 6 metallic washers each measuring 1.0 cm in diameter. The specimen is for gross identification only. DB/pl POCT-GLUCOSE METER 2018-02-07 08:19:00 POC-GLUCOSE METER (BEAKER) (test lprq=3736) 164 mg/dL 70-110 TESTED AT [facility] [address] [facility] [address] CBC W/PLT COUNT & AUTO [id number] 06:09:00* Test Item Value Reference Range Comments WHITE BLOOD CELL COUNT (BEAKER) (test jedg=334) 8.0 K/ L 3.5-10.5 RED BLOOD CELL COUNT (BEAKER) (test ksrn=522) 2.85 M/ L 4.63-6.08 HEMOGLOBIN (BEAKER) (test tqot=426) 8.1 GM/DL 13.7-17.5 HEMATOCRIT (BEAKER) (test zoqe=259) 25.3 % 40.1-51.0 MEAN CORPUSCULAR VOLUME (BEAKER) (test vqhh=118) 88.8 fL 79.0-92.2 MEAN CORPUSCULAR HEMOGLOBIN (BEAKER) (test lsmh=281) 28.4 pg 25.7-32.2 MEAN CORPUSCULAR HEMOGLOBIN CONC (BEAKER) (test ojcy=336) 32.0 GM/DL 32.3-36.5 RED CELL DISTRIBUTION WIDTH (BEAKER) (test iopi=456) 14.6 % 11.6-14.4 PLATELET COUNT (BEAKER) (test qruw=590) 302 K/CU MM 150-450 MEAN PLATELET VOLUME (BEAKER) (test qjth=437) 9.3 fL 9.4-12.4 NUCLEATED RED BLOOD CELLS (BEAKER) (test goax=114) 0 /100 WBC 0-0 NEUTROPHILS RELATIVE PERCENT (BEAKER) (test jxmc=275) 49 % LYMPHOCYTES RELATIVE PERCENT (BEAKER) (test uonj=030) 37 % MONOCYTES RELATIVE PERCENT (BEAKER) (test bylg=385) 11 % EOSINOPHILS RELATIVE PERCENT (BEAKER) (test mwyy=985) 2 % BASOPHILS RELATIVE PERCENT (BEAKER) (test jxnp=564) 1 % NEUTROPHILS ABSOLUTE COUNT (BEAKER) (test rwbk=854) 3.87 K/ L 1.78-5.38 LYMPHOCYTES ABSOLUTE COUNT (BEAKER) (test svkq=954) 2.95 K/ L 1.32-3.57 MONOCYTES ABSOLUTE COUNT (BEAKER) (test tstx=494) 0.84 K/ L 0.30-0.82 EOSINOPHILS ABSOLUTE COUNT (BEAKER) (test tbju=062) 0.15 K/ L 0.04-0.54 BASOPHILS ABSOLUTE COUNT (BEAKER) (test ttlk=342) 0.06 K/ L 0.01-0.08 IMMATURE GRANULOCYTES-RELATIVE PERCENT (BEAKER) (test uvmz=6380) 1 % 0-1 CBC W/PLT COUNT & AUTO [id number] 21:17:00* Test Item Value Reference Range Comments WHITE BLOOD CELL COUNT (BEAKER) (test ayif=543) 9.0 K/ L 3.5-10.5 RED BLOOD CELL COUNT (BEAKER) (test hbtl=558) 2.76 M/ L 4.63-6.08 HEMOGLOBIN (BEAKER) (test qntd=100) 8.2 GM/DL 13.7-17.5 HEMATOCRIT (BEAKER) (test gmvt=613) 25.0 % 40.1-51.0 MEAN CORPUSCULAR VOLUME (BEAKER) (test fsmn=950) 90.6 fL 79.0-92.2 MEAN CORPUSCULAR HEMOGLOBIN (BEAKER) (test xwlb=180) 29.7 pg 25.7-32.2 MEAN CORPUSCULAR HEMOGLOBIN CONC (BEAKER) (test htws=297) 32.8 GM/DL 32.3-36.5 RED CELL DISTRIBUTION WIDTH (BEAKER) (test qyrs=116) 14.6 % 11.6-14.4 PLATELET COUNT (BEAKER) (test tlya=282) 309 K/CU MM 150-450 MEAN PLATELET VOLUME (BEAKER) (test dhva=582) 9.1 fL 9.4-12.4 NUCLEATED RED BLOOD CELLS (BEAKER) (test ysiy=370) 0 /100 WBC 0-0 NEUTROPHILS RELATIVE PERCENT (BEAKER) (test wtrj=221) 54 % LYMPHOCYTES RELATIVE PERCENT (BEAKER) (test zphm=167) 34 % MONOCYTES RELATIVE PERCENT (BEAKER) (test yewz=519) 10 % EOSINOPHILS RELATIVE PERCENT (BEAKER) (test edzv=342) 2 % BASOPHILS RELATIVE PERCENT (BEAKER) (test wftj=927) 1 % NEUTROPHILS ABSOLUTE COUNT (BEAKER) (test dref=680) 4.82 K/ L 1.78-5.38 LYMPHOCYTES ABSOLUTE COUNT (BEAKER) (test titl=890) 3.04 K/ L 1.32-3.57 MONOCYTES ABSOLUTE COUNT (BEAKER) (test umsv=525) 0.86 K/ L 0.30-0.82 EOSINOPHILS ABSOLUTE COUNT (BEAKER) (test ppua=150) 0.15 K/ L 0.04-0.54 BASOPHILS ABSOLUTE COUNT (BEAKER) (test ilhy=620) 0.06 K/ L 0.01-0.08 IMMATURE GRANULOCYTES-RELATIVE PERCENT (BEAKER) (test toxf=0035) 1 % 0-1 POCT-GLUCOSE [id number] 21:13:00* Test Item Value Reference Range Comments POC-GLUCOSE METER (BEAKER) (test qanu=4145) 147 mg/dL 70-110 TESTED AT [address] [address] POCT-GLUCOSE [id number] 18:29:00* Test Item Value Reference Range Comments POC-GLUCOSE METER (BEAKER) (test qcfo=0389) 111 mg/dL 70-110 TESTED AT [address] [address] POCT-GLUCOSE [id number] 12:28:00* Test Item Value Reference Range Comments POC-GLUCOSE METER (BEAKER) (test pufn=7770) 103 mg/dL 70-110 TESTED AT [address] [address] POCT-GLUCOSE [id number] 08:01:00* Test Item Value Reference Range Comments POC-GLUCOSE METER (BEAKER) (test klmj=2393) 145 mg/dL 70-110 TESTED AT [address] [address] HEMOGLOBIN AND [id number] 06:46:00* Test Item Value Reference Range Comments HEMOGLOBIN (BEAKER) (test eldc=210) 6.5 GM/DL 13.7-17.5 HEMATOCRIT (BEAKER) (test whrs=866) 21.0 % 40.1-51.0 POCT-GLUCOSE [id number] 21:15:00* Test Item Value Reference Range Comments POC-GLUCOSE METER (BEAKER) (test mvkb=6198) 121 mg/dL 70-110 TESTED AT [address] [address] POCT-GLUCOSE [id number] 17:12:00* Test Item Value Reference Range Comments POC-GLUCOSE METER (BEAKER) (test awav=2023) 163 mg/dL 70-110 TESTED AT [address] [address] CBC W/PLT COUNT & AUTO [id number] 13:52:00* Test Item Value Reference Range Comments WHITE BLOOD CELL COUNT (BEAKER) (test ncek=428) 14.0 K/ L 3.5-10.5 RED BLOOD CELL COUNT (BEAKER) (test xjli=108) 2.47 M/ L 4.63-6.08 HEMOGLOBIN (BEAKER) (test vdia=550) 7.0 GM/DL 13.7-17.5 HEMATOCRIT (BEAKER) (test lzar=122) 22.7 % 40.1-51.0 MEAN CORPUSCULAR VOLUME (BEAKER) (test argd=149) 91.9 fL 79.0-92.2 MEAN CORPUSCULAR HEMOGLOBIN (BEAKER) (test ixxb=431) 28.3 pg 25.7-32.2 MEAN CORPUSCULAR HEMOGLOBIN CONC (BEAKER) (test dgkz=845) 30.8 GM/DL 32.3-36.5 RED CELL DISTRIBUTION WIDTH (BEAKER) (test miif=836) 14.3 % 11.6-14.4 PLATELET COUNT (BEAKER) (test krkb=468) 308 K/CU MM 150-450 MEAN PLATELET VOLUME (BEAKER) (test kunm=487) 8.8 fL 9.4-12.4 NUCLEATED RED BLOOD CELLS (BEAKER) (test lrcd=268) 0 /100 WBC 0-0 NEUTROPHILS RELATIVE PERCENT (BEAKER) (test cvse=171) 74 % LYMPHOCYTES RELATIVE PERCENT (BEAKER) (test sbri=225) 16 % MONOCYTES RELATIVE PERCENT (BEAKER) (test nlnv=262) 8 % EOSINOPHILS RELATIVE PERCENT (BEAKER) (test xqkj=675) 0 % BASOPHILS RELATIVE PERCENT (BEAKER) (test zqjh=574) 1 % NEUTROPHILS ABSOLUTE COUNT (BEAKER) (test bgyh=497) 10.35 K/ L 1.78-5.38 LYMPHOCYTES ABSOLUTE COUNT (BEAKER) (test ukdz=055) 2.27 K/ L 1.32-3.57 MONOCYTES ABSOLUTE COUNT (BEAKER) (test rlty=748) 1.15 K/ L 0.30-0.82 EOSINOPHILS ABSOLUTE COUNT (BEAKER) (test wcsk=551) 0.01 K/ L 0.04-0.54 BASOPHILS ABSOLUTE COUNT (BEAKER) (test yhzz=137) 0.07 K/ L 0.01-0.08 IMMATURE GRANULOCYTES-RELATIVE PERCENT (BEAKER) (test wzep=0480) 1 % 0-1 POCT-GLUCOSE [id number] 13:37:00* Test Item Value Reference Range Comments POC-GLUCOSE METER (BEAKER) (test whyj=0544) 100 mg/dL 70-110 TESTED AT [facility] [address] [facility] [address] POCT-GLUCOSE [id number] 08:25:00* Test Item Value Reference Range Comments POC-GLUCOSE METER (BEAKER) (test swqi=2470) 190 mg/dL 70-110 TESTED AT [facility] [address] [facility] [address] BASIC METABOLIC [id number] 04:37:00* Test Item Value Reference Range Comments SODIUM (BEAKER) (test bipm=083) 136 meq/L 136-145 POTASSIUM (BEAKER) (test ewsn=163) 4.6 meq/L 3.5-5.1 CHLORIDE (BEAKER) (test aipq=436) 104 meq/L 98-107 CO2 (BEAKER) (test xfea=492) 26 meq/L 22-29 BLOOD UREA NITROGEN (BEAKER) (test lbnv=514) 18 mg/dL 7-21 CREATININE (BEAKER) (test iadw=799) 1.09 mg/dL 0.57-1.25 GLUCOSE RANDOM (BEAKER) (test vyfp=458) 193 mg/dL 70-105 CALCIUM (BEAKER) (test hsgs=369) 8.6 mg/dL 8.4-10.2 EGFR (BEAKER) (test patk=9455) 69 mL/min/1.73 sq m ESTIMATED GFR IS NOT ACCURATE CREATININE CLEARANCE IN PREDICTING GLOMERULAR FILTRATION RATE. ESTIMATED GFR IS NOT APPLICABLE FOR DIALYSIS PATIENTS. CBC W/PLT COUNT & AUTO [id number] 04:03:00* Test Item Value Reference Range Comments WHITE BLOOD CELL COUNT (BEAKER) (test aava=070) 11.2 K/ L 3.5-10.5 RED BLOOD CELL COUNT (BEAKER) (test dpax=185) 2.66 M/ L 4.63-6.08 HEMOGLOBIN (BEAKER) (test tvkm=538) 7.6 GM/DL 13.7-17.5 HEMATOCRIT (BEAKER) (test qwgv=595) 24.6 % 40.1-51.0 MEAN CORPUSCULAR VOLUME (BEAKER) (test kppu=171) 92.5 fL 79.0-92.2 MEAN CORPUSCULAR HEMOGLOBIN (BEAKER) (test dkvm=643) 28.6 pg 25.7-32.2 MEAN CORPUSCULAR HEMOGLOBIN CONC (BEAKER) (test qeep=730) 30.9 GM/DL 32.3-36.5 RED CELL DISTRIBUTION WIDTH (BEAKER) (test diij=139) 14.0 % 11.6-14.4 PLATELET COUNT (BEAKER) (test kuwy=931) 306 K/CU MM 150-450 MEAN PLATELET VOLUME (BEAKER) (test kftc=553) 9.3 fL 9.4-12.4 NUCLEATED RED BLOOD CELLS (BEAKER) (test eyci=813) 0 /100 WBC 0-0 NEUTROPHILS RELATIVE PERCENT (BEAKER) (test noaw=549) 84 % LYMPHOCYTES RELATIVE PERCENT (BEAKER) (test mpyo=923) 11 % MONOCYTES RELATIVE PERCENT (BEAKER) (test uglk=035) 5 % EOSINOPHILS RELATIVE PERCENT (BEAKER) (test lttq=431) 0 % BASOPHILS RELATIVE PERCENT (BEAKER) (test hiua=097) 0 % NEUTROPHILS ABSOLUTE COUNT (BEAKER) (test wyqq=635) 9.44 K/ L 1.78-5.38 LYMPHOCYTES ABSOLUTE COUNT (BEAKER) (test lflf=008) 1.17 K/ L 1.32-3.57 MONOCYTES ABSOLUTE COUNT (BEAKER) (test xmoz=026) 0.51 K/ L 0.30-0.82 EOSINOPHILS ABSOLUTE COUNT (BEAKER) (test yhqa=904) 0.00 K/ L 0.04-0.54 BASOPHILS ABSOLUTE COUNT (BEAKER) (test zqnn=472) 0.02 K/ L 0.01-0.08 IMMATURE GRANULOCYTES-RELATIVE PERCENT (BEAKER) (test tzhv=6313) 0 % 0-1 POCT-GLUCOSE [id number] 21:58:00* Test Item Value Reference Range Comments POC-GLUCOSE METER (BEAKER) (test ldks=1835) 252 mg/dL 70-110 TESTED AT [facility] [address] [facility] [address] POCT-GLUCOSE [id number] 18:20:00* Test Item Value Reference Range Comments POC-GLUCOSE METER (BEAKER) (test czxv=5834) 179 mg/dL 70-110 TESTED AT [place] [id number] [facility] [address] [place], C.O.D. CLERK IN OR/30 MINUTE [id number] 17:14:00Reason for exam:->back painFINAL REPORT Fluoroscopy 2 views intraoperative 02/04/2018 5:14 PM CLINICAL HISTORY: Instrument localization COMPARISON: None available IMPRESSION: Please correlate imaging report findings with the procedure note prepared by Dr. Mackenzie, as an intra-procedure imaging consultation was not requested. Reported fluoroscopy time: 6.4 seconds. Signed: Merritt Almaraz Verified Date/Time: 02/04/2018 17:14:32 Reading Location: [facility] Radiology Reading Room -GLUCOSE [id number] 12:47:00* Test Item Value Reference Range Comments POC-GLUCOSE METER (BEAKER) (test mwbz=7827) 121 mg/dL 70-110 TESTED AT [facility] [address] [facility] [address] POCT-GLUCOSE [id number] 00:04:00* Test Item Value Reference Range Comments POC-GLUCOSE METER (BEAKER) (test xwdh=3497) 124 mg/dL 70-110 TESTED AT [place] [address] [facility] [address] BASIC METABOLIC [id number] 20:45:00* Test Item Value Reference Range Comments SODIUM (BEAKER) (test zzqh=916) 139 meq/L 136-145 POTASSIUM (BEAKER) (test hwuc=887) 3.6 meq/L 3.5-5.1 CHLORIDE (BEAKER) (test ecmj=246) 103 meq/L 98-107 CO2 (BEAKER) (test ywwi=488) 30 meq/L 22-29 BLOOD UREA NITROGEN (BEAKER) (test kcyc=326) 14 mg/dL 7-21 CREATININE (BEAKER) (test ceff=258) 1.27 mg/dL 0.57-1.25 GLUCOSE RANDOM (BEAKER) (test tyzd=323) 69 mg/dL 70-105 CALCIUM (BEAKER) (test tyzk=070) 9.8 mg/dL 8.4-10.2 EGFR (BEAKER) (test umhp=1813) 58 mL/min/1.73 sq m ESTIMATED GFR IS NOT ACCURATE CREATININE CLEARANCE IN PREDICTING GLOMERULAR FILTRATION RATE. ESTIMATED GFR IS NOT APPLICABLE FOR DIALYSIS PATIENTS. [id number] 20:40:00* Test Item Value Reference Range Comments PROTIME (BEAKER) (test rrxf=648) 12.8 seconds 11.7-14.7 INR (BEAKER) (test ypki=678) 1.0 <=5.9 PARTIAL THROMBOPLASTIN TIME (BEAKER) (test vlwe=027) 33.1 seconds 22.5-36.0 RECOMMENDED COUMADIN/WARFARIN INR THERAPY RANGESSTANDARD DOSE: 2.0 - 3.0 Inclu cathryn: PROPHYLAXIS for venous thrombosis, systemic embolization; TREATMENT for karlie ous thrombosis and/or pulmonary embolus.HIGH RISK: Target INR is 2.5-3.5 for pat ients with mechanical heart valves.CBC W/PLT COUNT & AUTO [id number] 20:31:00* Test Item Value Reference Range Comments WHITE BLOOD CELL COUNT (BEAKER) (test buba=010) 8.4 K/ L 3.5-10.5 RED BLOOD CELL COUNT (BEAKER) (test lbzc=724) 3.60 M/ L 4.63-6.08 HEMOGLOBIN (BEAKER) (test luwh=357) 10.3 GM/DL 13.7-17.5 HEMATOCRIT (BEAKER) (test glay=516) 33.2 % 40.1-51.0 MEAN CORPUSCULAR VOLUME (BEAKER) (test pkbx=173) 92.2 fL 79.0-92.2 MEAN CORPUSCULAR HEMOGLOBIN (BEAKER) (test cbop=813) 28.6 pg 25.7-32.2 MEAN CORPUSCULAR HEMOGLOBIN CONC (BEAKER) (test ayhq=072) 31.0 GM/DL 32.3-36.5 RED CELL DISTRIBUTION WIDTH (BEAKER) (test nzdt=743) 13.8 % 11.6-14.4 PLATELET COUNT (BEAKER) (test duua=169) 356 K/CU MM 150-450 MEAN PLATELET VOLUME (BEAKER) (test panz=407) 8.7 fL 9.4-12.4 NUCLEATED RED BLOOD CELLS (BEAKER) (test amfj=386) 0 /100 WBC 0-0 NEUTROPHILS RELATIVE PERCENT (BEAKER) (test fkhj=217) 48 % LYMPHOCYTES RELATIVE PERCENT (BEAKER) (test qgkn=655) 37 % MONOCYTES RELATIVE PERCENT (BEAKER) (test zxho=842) 7 % EOSINOPHILS RELATIVE PERCENT (BEAKER) (test ewhl=321) 6 % BASOPHILS RELATIVE PERCENT (BEAKER) (test iibu=689) 1 % NEUTROPHILS ABSOLUTE COUNT (BEAKER) (test cwfy=348) 4.03 K/ L 1.78-5.38 LYMPHOCYTES ABSOLUTE COUNT (BEAKER) (test jzuy=343) 3.14 K/ L 1.32-3.57 MONOCYTES ABSOLUTE COUNT (BEAKER) (test fblk=357) 0.61 K/ L 0.30-0.82 EOSINOPHILS ABSOLUTE COUNT (BEAKER) (test mtqi=649) 0.50 K/ L 0.04-0.54 BASOPHILS ABSOLUTE COUNT (BEAKER) (test qyva=880) 0.09 K/ L 0.01-0.08 IMMATURE GRANULOCYTES-RELATIVE PERCENT (BEAKER) (test mzow=2496) 1 % 0-1 [id number] 18:43:00* Test Item Value Reference Range Comments PROTIME (BEAKER) (test nzul=868) 12.9 seconds 11.7-14.7 INR (BEAKER) (test fzjz=531) 1.0 <=5.9 PARTIAL THROMBOPLASTIN TIME (BEAKER) (test ueoh=338) 33.3 seconds 22.5-36.0 RECOMMENDED COUMADIN/WARFARIN INR THERAPY RANGESSTANDARD DOSE: 2.0 - 3.0 Inclu cathryn: PROPHYLAXIS for venous thrombosis, systemic embolization; TREATMENT for karlie ous thrombosis and/or pulmonary embolus.HIGH RISK: Target INR is 2.5-3.5 for pat ients with mechanical heart valves.CBC W/PLT COUNT & AUTO [id number] 18:34:00* Test Item Value Reference Range Comments WHITE BLOOD CELL COUNT (BEAKER) (test vlux=323) 7.1 K/ L 3.5-10.5 RED BLOOD CELL COUNT (BEAKER) (test hokc=996) 3.61 M/ L 4.63-6.08 HEMOGLOBIN (BEAKER) (test cbcx=328) 10.5 GM/DL 13.7-17.5 HEMATOCRIT (BEAKER) (test bdyg=858) 33.1 % 40.1-51.0 MEAN CORPUSCULAR VOLUME (BEAKER) (test yyay=305) 91.7 fL 79.0-92.2 MEAN CORPUSCULAR HEMOGLOBIN (BEAKER) (test irmg=179) 29.1 pg 25.7-32.2 MEAN CORPUSCULAR HEMOGLOBIN CONC (BEAKER) (test lhex=188) 31.7 GM/DL 32.3-36.5 RED CELL DISTRIBUTION WIDTH (BEAKER) (test zbiu=686) 14.0 % 11.6-14.4 PLATELET COUNT (BEAKER) (test plua=684) 346 K/CU MM 150-450 MEAN PLATELET VOLUME (BEAKER) (test vftr=760) 9.4 fL 9.4-12.4 NUCLEATED RED BLOOD CELLS (BEAKER) (test hyka=463) 0 /100 WBC 0-0 NEUTROPHILS RELATIVE PERCENT (BEAKER) (test dusk=429) 50 % LYMPHOCYTES RELATIVE PERCENT (BEAKER) (test usba=497) 36 % MONOCYTES RELATIVE PERCENT (BEAKER) (test fkgl=043) 9 % EOSINOPHILS RELATIVE PERCENT (BEAKER) (test crrx=157) 5 % BASOPHILS RELATIVE PERCENT (BEAKER) (test dctj=856) 1 % NEUTROPHILS ABSOLUTE COUNT (BEAKER) (test gzrw=488) 3.51 K/ L 1.78-5.38 LYMPHOCYTES ABSOLUTE COUNT (BEAKER) (test bvqt=321) 2.51 K/ L 1.32-3.57 MONOCYTES ABSOLUTE COUNT (BEAKER) (test lrji=081) 0.60 K/ L 0.30-0.82 EOSINOPHILS ABSOLUTE COUNT (BEAKER) (test zndd=710) 0.32 K/ L 0.04-0.54 BASOPHILS ABSOLUTE COUNT (BEAKER) (test otaq=672) 0.08 K/ L 0.01-0.08 IMMATURE GRANULOCYTES-RELATIVE PERCENT (BEAKER) (test cnjl=0479) 0 % 0-1 CT, SPINE, LUMBAR, WO [id number] 17:55:00Reason for exam:->BACK PAINWhat is the patient's sedation requirement?->No SedationFINAL REPORT CT Lumbar spine CLINICAL HISTORY: Low back pain, rapidly progressive neuro deficitBACK PAIN TECHNIQUE: Contiguous noncontrast axial images of [...] patient is status post bilateral posterior spinal sveta and pedicle screw fusion of L3-S1; except at L5, where keli ateral pedicle screws extend into the vertebral bodies, but are not connected to the spinal rods. Additionally, the right spinal sveta is discontinuous from the r ight S1 pedicle screw. Prominent lucency surrounding the bilateral S1 screws is compatible with either loosening or infection. Interbody strut grafts are seen at L3-L4, L4-L5, and L5-S1. One of the L2-L3 strut grafts extends 6 mm beyond th e posterior vertebral body margin into the right lateral central canal. There is concavity of the S1 superior endplate below the strut graft, with subcortical l ucency compatible with the fracture. The lumbar vertebral body heights are other funes maintained. There are chronic fractures through the left L3 and L4 transver se processes. The lumbar curvature and alignment is maintained. There are decomp ressive laminectomies of L3-4, L4-L5, L5-S1. Please note that the central canal contents are not well evaluated due to the lack of intrathecal contrast and meta llic streak effect. There are postoperative edema changes in the midline lower back soft tissues. IMPRESSION: Status post L3-S1 fusion as discussed above. Spe cifically, lucency surrounding the bilateral S1 pedicle screws is compatible wit h either loosening versus infection. The right S1 pedicle screws disconnected fr om the spinal sveta, as are the bilateral L5 screws. A L2-L3 strut graft extends p osteriorly into the dorsal right central canal. S1 superior endplate compression fracture underlying the strut graft. Signed: Susu Roy MDReport Verified Da te/Time: 01/29/2018 17:55:20 Reading Location: [facility] Radiology Reading Room C METABOLIC [id number] 17:04:00* Test Item Value Reference Range Comments SODIUM (BEAKER) (test mefu=351) 138 meq/L 136-145 POTASSIUM (BEAKER) (test eovj=241) 3.9 meq/L 3.5-5.1 CHLORIDE (BEAKER) (test ywai=849) 103 meq/L 98-107 CO2 (BEAKER) (test zixo=679) 25 meq/L 22-29 BLOOD UREA NITROGEN (BEAKER) (test hzwq=900) 13 mg/dL 7-21 CREATININE (BEAKER) (test oxid=198) 1.21 mg/dL 0.57-1.25 GLUCOSE RANDOM (BEAKER) (test fqxt=634) 199 mg/dL 70-105 CALCIUM (BEAKER) (test hton=995) 9.6 mg/dL 8.4-10.2 EGFR (BEAKER) (test edja=2853) 62 mL/min/1.73 sq m ESTIMATED GFR IS NOT ACCURATE CREATININE CLEARANCE IN PREDICTING GLOMERULAR FILTRATION RATE. ESTIMATED GFR IS NOT APPLICABLE FOR DIALYSIS PATIENTS. SENIOR PRIVATE CLIENT ADVISOR, NEURO INTRAOPERATIVE [id number] 10:41:00Reason for exam:->intra op neuro monitoringINTRAOPERATIVE MONITORING REPORT Patient Name: Kareen Powers [facility] Surgery Date: 2017 [employer] Pro: [id number] Monitoring began at 650 and ended at 1236 Surgeon: Wilbert Mackenzie MD Examining Physician : Oskar Agee MD [...] quiet and responses were judged to be ess entially unchanged from those of post-positioning baselines. Conclusion : Thes e results suggest the absence of untoward, secondary effects on posterior column function as a consequence of this surgical procedure. All values elicited by tr iggered EMG to verify pedicle screw placement and nerve root function were repor hellen to the surgeon. Surgeon aware of all responses during case and at closing. Oskar Agee MD [id number] Electronic ally signed by: OSKAR AGEE MD on 01/27/2018 10:41 AM TISSUE EXAM 2017-12-28 16:09:00Surgical Pathology Report Case: [id number] Authorizing Provider: Wilbert Mackenzie MD Collected: 2017 1033 Ordering Location: [facility] Received: 2017 1238 SERVICES Pathologist: George Davis MD Specimens: A) - Explant, Previous lumbar hardware B) - Intervertebral Disc, L3-S1 A. VERTEBRAL COLUMN, LUMBAR, REMOVAL:ORTHOPEDIC HARDWARE (GROSS EXAMINATION ONLY)B. VERTEBRAL COLUMN, INTERVERTEBRAL DISC, L3-S1, DISCECTOMIES:FRAGMENTS OF FIBROCARTILAGE WITH MILD DEGENERATIVE CHANGESSMALL FRAGMENTS OF BONE Signing Pathologist Direct Phone Line: [phone] signed by George Davis MD on 12/28/2017 at 4:09 [id number]; [id number]; [id number] due to other internal prosthetic devices, implant and graftsA. Previous lumbar hardware. B. L3-S1 discSpecimen A: Received fresh labeled "explant", description "previous lumbar hardware" are four metallic screws ranging in length from 3.6 cm to 7.0 cm and measuring 0.5 cm in diameter, two metallic rods each measuring 4.0 cm in length and 0.5 cm in diameter, and four metallic washers each measuring 0.6 cm in diameter. The specimen is for gross identification only.Specimen B: Received fresh labeled "intervertebral disc", description "L3-S1" is a 3.5 x 3.5 x 0.5 cm aggregate of pink-gentile to luong-white, rubbery, fibrillar, cartilaginous and osseous tissue. [employer] sections are submitted in cassette B1 for decalcification. KAH/DB/ew Performed on BPOCT-GLUCOSE [id number] 12:16:00* Test Item Value Reference Range Comments POC-GLUCOSE METER (BEAKER) (test xkaf=8489) 164 mg/dL 70-110 TESTED AT [facility] [address] [facility] [address] POCT-GLUCOSE [id number] 08:01:00* Test Item Value Reference Range Comments POC-GLUCOSE METER (BEAKER) (test urij=8485) 181 mg/dL 70-110 TESTED AT [facility] [address] [facility] [address] BASIC METABOLIC [id number] 06:49:00* Test Item Value Reference Range Comments SODIUM (BEAKER) (test dbhz=548) 134 meq/L 136-145 POTASSIUM (BEAKER) (test zzjc=977) 3.9 meq/L 3.5-5.1 CHLORIDE (BEAKER) (test loze=875) 101 meq/L 98-107 CO2 (BEAKER) (test zzva=141) 25 meq/L 22-29 BLOOD UREA NITROGEN (BEAKER) (test elql=576) 12 mg/dL 7-21 CREATININE (BEAKER) (test octf=716) 0.86 mg/dL 0.57-1.25 GLUCOSE RANDOM (BEAKER) (test nowq=957) 179 mg/dL 70-105 CALCIUM (BEAKER) (test nrkk=614) 8.8 mg/dL 8.4-10.2 EGFR (BEAKER) (test kwow=4691) 91 mL/min/1.73 sq m ESTIMATED GFR IS NOT ACCURATE CREATININE CLEARANCE IN PREDICTING GLOMERULAR FILTRATION RATE. ESTIMATED GFR IS NOT APPLICABLE FOR DIALYSIS PATIENTS. CBC (HEMOGRAM ONLY)2017-12-27 06:14:00* Test Item Value Reference Range Comments WHITE BLOOD CELL COUNT (BEAKER) (test krxq=512) 8.2 K/ L 3.5-10.5 RED BLOOD CELL COUNT (BEAKER) (test kify=878) 2.59 M/ L 4.63-6.08 HEMOGLOBIN (BEAKER) (test xfni=623) 8.5 GM/DL 13.7-17.5 HEMATOCRIT (BEAKER) (test cnqy=872) 25.0 % 40.1-51.0 MEAN CORPUSCULAR VOLUME (BEAKER) (test rzmc=002) 96.5 fL 79.0-92.2 MEAN CORPUSCULAR HEMOGLOBIN (BEAKER) (test zznd=707) 32.8 pg 25.7-32.2 MEAN CORPUSCULAR HEMOGLOBIN CONC (BEAKER) (test tbwy=293) 34.0 GM/DL 32.3-36.5 RED CELL DISTRIBUTION WIDTH (BEAKER) (test glel=471) 13.2 % 11.6-14.4 PLATELET COUNT (BEAKER) (test sgrk=761) 201 K/CU MM 150-450 MEAN PLATELET VOLUME (BEAKER) (test gugb=867) 9.7 fL 9.4-12.4 NUCLEATED RED BLOOD CELLS (BEAKER) (test qfyw=166) 0 /100 WBC 0-0 POCT-GLUCOSE [id number] 21:16:00* Test Item Value Reference Range Comments POC-GLUCOSE METER (BEAKER) (test aavd=2297) 108 mg/dL 70-110 TESTED AT [address] [address] POCT-GLUCOSE [id number] 17:48:00* Test Item Value Reference Range Comments POC-GLUCOSE METER (BEAKER) (test lvpa=3416) 210 mg/dL 70-110 TESTED AT [address] [address] POCT-GLUCOSE [id number] 12:22:00* Test Item Value Reference Range Comments POC-GLUCOSE METER (BEAKER) (test lbkx=3511) 176 mg/dL 70-110 TESTED AT [address] [address] POCT-GLUCOSE [id number] 08:43:00* Test Item Value Reference Range Comments POC-GLUCOSE METER (BEAKER) (test sbbs=7460) 272 mg/dL 70-110 TESTED AT [address] [address] BASIC METABOLIC [id number] 04:56:00* Test Item Value Reference Range Comments SODIUM (BEAKER) (test uvah=985) 135 meq/L 136-145 POTASSIUM (BEAKER) (test lkoy=171) 3.7 meq/L 3.5-5.1 CHLORIDE (BEAKER) (test evke=140) 102 meq/L 98-107 CO2 (BEAKER) (test urkl=434) 25 meq/L 22-29 BLOOD UREA NITROGEN (BEAKER) (test ekya=663) 12 mg/dL 7-21 CREATININE (BEAKER) (test qtpu=140) 0.87 mg/dL 0.57-1.25 GLUCOSE RANDOM (BEAKER) (test xdwi=421) 183 mg/dL 70-105 CALCIUM (BEAKER) (test vvgy=976) 8.6 mg/dL 8.4-10.2 EGFR (BEAKER) (test iotg=3568) 90 mL/min/1.73 sq m ESTIMATED GFR IS NOT ACCURATE CREATININE CLEARANCE IN PREDICTING GLOMERULAR FILTRATION RATE. ESTIMATED GFR IS NOT APPLICABLE FOR DIALYSIS PATIENTS. CBC (HEMOGRAM ONLY)2017-12-26 04:15:00* Test Item Value Reference Range Comments WHITE BLOOD CELL COUNT (BEAKER) (test xgzm=590) 9.4 K/ L 3.5-10.5 RED BLOOD CELL COUNT (BEAKER) (test sycc=994) 2.51 M/ L 4.63-6.08 HEMOGLOBIN (BEAKER) (test tlwr=279) 8.1 GM/DL 13.7-17.5 HEMATOCRIT (BEAKER) (test oafp=385) 24.2 % 40.1-51.0 MEAN CORPUSCULAR VOLUME (BEAKER) (test hclp=638) 96.4 fL 79.0-92.2 MEAN CORPUSCULAR HEMOGLOBIN (BEAKER) (test ahma=822) 32.3 pg 25.7-32.2 MEAN CORPUSCULAR HEMOGLOBIN CONC (BEAKER) (test bypb=765) 33.5 GM/DL 32.3-36.5 RED CELL DISTRIBUTION WIDTH (BEAKER) (test jjfz=206) 13.2 % 11.6-14.4 PLATELET COUNT (BEAKER) (test bhvz=376) 188 K/CU MM 150-450 MEAN PLATELET VOLUME (BEAKER) (test rodc=101) 9.7 fL 9.4-12.4 NUCLEATED RED BLOOD CELLS (BEAKER) (test owxc=430) 0 /100 WBC 0-0 POCT-GLUCOSE [id number] 20:58:00* Test Item Value Reference Range Comments POC-GLUCOSE METER (BEAKER) (test febg=4878) 228 mg/dL 70-110 TESTED AT [place] [id number] [facility] [address] POCT-GLUCOSE [id number] 17:49:00* Test Item Value Reference Range Comments POC-GLUCOSE METER (BEAKER) (test mxbt=3951) 369 mg/dL 70-110 Notified CASSANDRA VICKERS/TESTED AT [address] [address] POCT-GLUCOSE [id number] 12:08:00* Test Item Value Reference Range Comments POC-GLUCOSE METER (BEAKER) (test gcce=4877) 205 mg/dL 70-110 TESTED AT [facility] [address] [facility] [address] POCT-GLUCOSE [id number] 07:59:00* Test Item Value Reference Range Comments POC-GLUCOSE METER (BEAKER) (test zuee=6526) 274 mg/dL 70-110 TESTED AT [facility] [address] [facility] [address] BASIC METABOLIC [id number] 07:14:00* Test Item Value Reference Range Comments SODIUM (BEAKER) (test lcne=453) 135 meq/L 136-145 POTASSIUM (BEAKER) (test wfgz=631) 4.0 meq/L 3.5-5.1 CHLORIDE (BEAKER) (test bxcz=861) 102 meq/L 98-107 CO2 (BEAKER) (test cbyu=053) 26 meq/L 22-29 BLOOD UREA NITROGEN (BEAKER) (test vvvj=010) 14 mg/dL 7-21 CREATININE (BEAKER) (test xttg=489) 1.10 mg/dL 0.57-1.25 GLUCOSE RANDOM (BEAKER) (test iiwu=799) 243 mg/dL 70-105 CALCIUM (BEAKER) (test wcjn=540) 8.1 mg/dL 8.4-10.2 EGFR (BEAKER) (test rkot=5363) 69 mL/min/1.73 sq m ESTIMATED GFR IS NOT ACCURATE CREATININE CLEARANCE IN PREDICTING GLOMERULAR FILTRATION RATE. ESTIMATED GFR IS NOT APPLICABLE FOR DIALYSIS PATIENTS. CBC (HEMOGRAM ONLY)2017-12-25 06:42:00* Test Item Value Reference Range Comments WHITE BLOOD CELL COUNT (BEAKER) (test csvo=284) 10.7 K/ L 3.5-10.5 RED BLOOD CELL COUNT (BEAKER) (test kwlo=344) 2.60 M/ L 4.63-6.08 HEMOGLOBIN (BEAKER) (test snki=037) 8.5 GM/DL 13.7-17.5 HEMATOCRIT (BEAKER) (test ghsa=642) 25.2 % 40.1-51.0 MEAN CORPUSCULAR VOLUME (BEAKER) (test qson=803) 96.9 fL 79.0-92.2 MEAN CORPUSCULAR HEMOGLOBIN (BEAKER) (test hsjf=650) 32.7 pg 25.7-32.2 MEAN CORPUSCULAR HEMOGLOBIN CONC (BEAKER) (test ueac=811) 33.7 GM/DL 32.3-36.5 RED CELL DISTRIBUTION WIDTH (BEAKER) (test geur=821) 13.3 % 11.6-14.4 PLATELET COUNT (BEAKER) (test jewt=471) 200 K/CU MM 150-450 MEAN PLATELET VOLUME (BEAKER) (test mvje=260) 9.7 fL 9.4-12.4 NUCLEATED RED BLOOD CELLS (BEAKER) (test fglw=233) 0 /100 WBC 0-0 POCT-GLUCOSE [id number] 20:20:00* Test Item Value Reference Range Comments POC-GLUCOSE METER (BEAKER) (test wgmi=3620) 389 mg/dL 70-110 Will Repeat Test/TESTED AT [address] [address] POCT-GLUCOSE [id number] 18:37:00* Test Item Value Reference Range Comments POC-GLUCOSE METER (BEAKER) (test xjqx=2520) 260 mg/dL 70-110 TESTED AT [address] [address] POCT-GLUCOSE [id number] 13:31:00* Test Item Value Reference Range Comments POC-GLUCOSE METER (BEAKER) (test cnee=4302) 248 mg/dL 70-110 TESTED AT [address] [address] [place], C.O.D. CLERK IN OR/30 MINUTE [id number] 13:17:00Reason for exam:->back painFINAL REPORT Intraoperative fluoroscopy films performed by the referring physician. Number of images: 2Fluoroscopic time: 28 seconds The films were submitted to PACS postprocedure. The radiologist was not present at the time of examination. An interpretation was not requested. The submitted images are nondiagnostic without real-time visualization. Please refer to the performing physician's dictation for all details regarding the procedure including the submitted images. The radiologist did not perform fluoroscopy. Signed: Susu Roy MDReport Verified Date/Time: 2017 13:17:45 Reading Location: [address] Consult Reading Room -GLUCOSE [id number] 11:32:00* Test Item Value Reference Range Comments POC-GLUCOSE METER (BEAKER) (test kjmd=8640) 192 mg/dL 70-110 TESTED AT [place] [address] HGB/HCT (H&H) - STAT [id number] 10:28:00* Test Item Value Reference Range Comments HEMOGLOBIN (BEAKER) (test wnnz=445) 13.1 g/dL 13.0-16.8 HEMATOCRIT (BEAKER) (test wnqh=477) 39.0 % 40.0-50.0 POCT-GLUCOSE [id number] 06:08:00* Test Item Value Reference Range Comments POC-GLUCOSE METER (BEAKER) (test qmeb=1350) 220 mg/dL 70-110 TESTED AT [place] [address]
--- OUTSIDE RECORDS SUMMARY | 2018-06-01 12:07 | XMS REPORT | Continuity of Care Document ---
Author Author [facility] Interface Address Unknown Phone Unavailable Problems Problem Status Onset Date Classification Date Reported Comments Source TRAUMA, INJECTION INJURY Active 08/08/2013 [facility] ABD PAIN Active 08/08/2013 [facility] ADHD - Attention deficit disorder with hyperactivity Resolved Problem 08/12/2013 [facility] Pain Active Problem 08/12/2013 [facility] Medications Medication Details Route Status Patient Instructions Ordering Provider Order Date Source pneumococcal 23-valent vaccine 0.5 ml, Route: IM, Drug Form: INJ, Daily, Start date: 08/10/13 9:00:00, Duration: 1 doses or times, Stop date: 08/10/13 9:00:00(Same as: Pneumovax 23) Refrigerate Inactive SYSTEM 08/10/2013 [facility] vilazodone 40 mg oral tablet 0 Refill(s) Active 08/10/2013 [facility] Saline Flush 0.9% 5 ml, Route: IVP, Drug Form: INJ, Dosing Weight 86.364, kg, PRN, PRN Line Flush, Start date: 08/09/13 2:57:00, Duration: 30 day, Stop date: 09/08/13 2:56:00(Same as: BD Posiflush) No Longer Active [facility] 08/09/2013 [facility] acetaminophen-hydrocodone 325 mg-10 mg oral tablet 1 tab, Route: PO, Drug Form: TAB, Dosing Weight 86.364, kg, Q4H, PRN Pain Score 4-6, Start date: 08/09/13 2:57:00, Duration: 30 day, Stop date: 09/08/13 2:56:00Do not exceed 4gm/day of acetaminophen. (Same as: Elizabeth 325/10) No Longer Active [facility] 08/09/2013 [facility] docusate 100 mg, 1 cap, Route: PO, Drug form: CAP, BID, Dosing Weight 86.364, kg, PRN Constipation, Start date: 08/09/13 2:57:00, Duration: 30 day, Stop date: 09/08/13 2:56:00(Same as: Colace) (Do Not Crush) No Longer Active [facility] 08/09/2013 [facility] morphine Sulfate 2 mg, 1 mL, Route: IVP, Drug form: INJ, Q3H, Dosing Weight 86.364, kg, PRN Pain Score 4-6, Start date: 08/09/13 2:57:00, Duration: 30 day, Stop date: 09/08/13 2:56:00(Same as:MORPhine Sulfate) No Longer Active [facility] 08/09/2013 [facility] ondansetron 4 mg, 2 mL, Route: IVP, Drug form: INJ, Q8H, Dosing Weight 86.364, kg, PRN Nausea & Vomiting, Start date: 08/09/13 2:57:00, Duration: 30 day, Stop date: 09/08/13 2:56:00(Same as: Zofran) No Longer Active [facility] 08/09/2013 [facility] Lactated Ringers IV 1,000 mL 1,000 mL, Rate: 125 ml/hr, Infuse over: 8 hr, Route: IV, Dosing Weight 86.364 kg, Total Volume: 1,000, Start date: 08/08/13 23:26:00, Duration: 30 day, Stop date: 09/07/13 23:25:00 No Longer Active [facility] 08/09/2013 [facility] NS (Bolus) IV 1,000 mL 1,000 mL, Rate: 1,000 ml/hr, Infuse over: 1 hr, Route: IV, Dosing Weight 86.364 kg, Total Volume: 1,000, Priority: STAT, Start date: 08/08/13 23:24:00, Duration: 1 doses or times, Stop date: 08/09/13 0:23:00, Bolus DoseBolus Dose No Longer Active [facility] 08/09/2013 [facility] Tylenol 975 mg, Route: PO, Drug form: TAB, ONCE, Dosing Weight 86.364, kg, Priority: STAT, Start date: 08/08/13 21:07:00, Stop date: 08/08/13 21:07:00 Inactive [facility] 08/09/2013 [facility] NS (Bolus) IV 1,000 mL 1,000 mL, Rate: 1,000 ml/hr, Infuse over: 1 hr, Route: IV, Dosing Weight 86.364 kg, Total Volume: 1,000, Priority: STAT, Start date: 08/08/13 18:50:00, Duration: 1 doses or times, Stop date: 08/08/13 19:49:00, Bolus DoseBolus Dose Inactive [facility] 08/09/2013 [facility] Zofran 4 mg, 2 mL, Route: IVP, Drug form: INJ, ONCE, Dosing Weight 86.364, kg, Priority: STAT, Start date: 08/08/13 18:50:00, Stop date: 08/08/13 18:50:00(Same as: Zofran) No Longer Active [facility] 08/09/2013 [facility] morphine Sulfate 4 mg, 2 mL, Route: IVP, Drug form: INJ, ONCE, Dosing Weight 86.364, kg, Priority: STAT, Start date: 08/08/13 18:50:00, Stop date: 08/08/13 18:50:00(Same as:MORPhine Sulfate) No Longer Active [facility] 08/09/2013 [facility] Silvadene 1% topical cream 1 appl, Route: TOP, ONCE, Drug form: CRM, Priority: Stat, Start date: 08/08/13 18:50:00, Stop date: 08/08/13 18:50:00(Same as: Silvadene) Inactive [facility] 08/09/2013 [facility] Allergies, Adverse Reactions, Alerts Substance Category Reaction Severity Reaction type Status Date Reported Comments Source Immunizations Immunization Date Given Site Status Last Updated Comments Source Results Order Name Results Value Reference Range Date Interpretation Comments Source CHEMISTRY AGAP 11.0 meq/L 10.0 - 20.0 08/09/2013 Normal [facility] CHEMISTRY B/C Ratio 10 6 - 25 08/09/2013 Normal [facility] CHEMISTRY Bili Total 0.5 mg/dL 0.2 - 1.3 08/09/2013 Normal [facility] CHEMISTRY A/G Ratio 1.0 0.7 - 1.6 08/09/2013 Normal [facility] CHEMISTRY Alk Phos 70 unit/L 39 - 136 08/09/2013 Normal [facility] CHEMISTRY Total Protein 6.1 g/dL 6.4 - 8.4 08/09/2013 LOW [facility] CHEMISTRY Globulin 3.0 g/dL 2.0 - 4.0 08/09/2013 Normal [facility] CHEMISTRY Albumin Lvl 3.1 g/dL 3.5 - 5.0 08/09/2013 LOW [facility] CHEMISTRY Calcium Lvl 8.4 mg/dL 8.5 - 10.5 08/09/2013 LOW [facility] CHEMISTRY ASPARTATE TRANSAMINASE 21 unit/L 0 - 37 08/09/2013 Normal [facility] CHEMISTRY ALANINE AMINOTRANSFERASE 27 unit/L 0 - 65 08/09/2013 Normal [facility] CHEMISTRY CO2 27 meq/L 24 - 32 08/09/2013 Normal [facility] CHEMISTRY Chloride Lvl 107 meq/L 95 - 109 08/09/2013 Normal [facility] CHEMISTRY Sodium Lvl 141 meq/L 135 - 145 08/09/2013 Normal [facility] CHEMISTRY Potassium Lvl 4.0 meq/L 3.5 - 5.1 08/09/2013 Normal [facility] CHEMISTRY eGFR 86 mL/min/1.73m2 08/09/2013 1Result Comment: The eGFR is calculated using [...] from the National Kidney Disease Education Program (NKDEP) which additionally recommends that when the eGFR is used in patients with extremes of body mass index for purposes of drug dosing, the eGFR should be multiplied by the estimated BMI. [facility] CHEMISTRY BUN 10 mg/dL 7 - 22 08/09/2013 Normal [facility] CHEMISTRY Creatinine Lvl 1.0 mg/dL 0.5 - 1.4 08/09/2013 Normal [facility] CHEMISTRY Glucose Lvl 99 mg/dL 70 - 99 08/09/2013 Normal 3Interpretive Data: Adult reference range values reflect the clinical guidelines of the [place] [employer]. [facility] HEMATOLOGY Lymphocytes # 2.9 K/CMM 1.0 - 5.5 08/09/2013 Normal [facility] HEMATOLOGY Eosinophils # 0.1 K/CMM 0.0 - 0.5 08/09/2013 Normal [facility] HEMATOLOGY Monocytes # 0.8 K/CMM 0.0 - 0.8 08/09/2013 Normal [facility] HEMATOLOGY Basophils # 0.0 K/CMM 0.0 - 0.2 08/09/2013 Normal [facility] HEMATOLOGY Segs 52.3 % 45.0 - 75.0 08/09/2013 Normal [facility] HEMATOLOGY Monocytes 9.9 % 2.0 - 12.0 08/09/2013 Normal [facility] HEMATOLOGY Lymphocytes 35.8 % 20.0 - 40.0 08/09/2013 Normal [facility] HEMATOLOGY Eosinophils 1.6 % 0.0 - 4.0 08/09/2013 Normal [facility] HEMATOLOGY Basophils 0.4 % 0.0 - 1.0 08/09/2013 Normal [facility] HEMATOLOGY Segs-Bands # 4.2 K/CMM 1.5 - 8.1 08/09/2013 Normal [facility] HEMATOLOGY MCHC 33.0 g/dL 32.0 - 36.0 08/09/2013 Normal [facility] HEMATOLOGY Platelet 292 K/CMM 133 - 450 08/09/2013 Normal [facility] HEMATOLOGY RDW 13.4 % 11.5 - 14.5 08/09/2013 Normal [facility] MCH 31.5 pg 27.0 - 31.0 08/09/2013 [place] [facility] HEMATOLOGY MPV 7.1 fL 7.4 - 10.4 08/09/2013 LOW [facility] HEMATOLOGY WBC X 10x3 8.0 K/CMM 3.7 - 10.4 08/09/2013 Normal [facility] HEMATOLOGY RBC X 10x6 3.61 M/CMM 4.70 - 6.10 08/09/2013 LOW [facility] HEMATOLOGY Hgb 11.4 g/dL 14.0 - 18.0 08/09/2013 LOW [facility] HEMATOLOGY Hct 34.4 % 42.0 - 54.0 08/09/2013 LOW [facility] HEMATOLOGY MCV 95.4 fL 80.0 - 94.0 08/09/2013 HI [facility] Foot AP lateral Foot AP lateral Examination: Right foot, 2 views. History: Swelling Comparison: None. Findings: Multiple views of the right foot show no acute bony fracture, joint dislocation, or suspicious osseous lesion. The soft tissues are unremarkable. IMPRESSION: No significant abnormality of the right foot. SL: 13 08/09/2013 - - Read by: Elias Jewell Dictated Date/time: 08/09/13 11:47 Electronically Signed by: Elias Jewell MD 08/09/13 11:48 FINAL REPORT [facility] CHEMISTRY Globulin 4.0 g/dL 2.0 - 4.0 08/09/2013 Normal [facility] CHEMISTRY A/G Ratio 1.0 0.7 - 1.6 08/09/2013 Normal [facility] CHEMISTRY AGAP 15.1 meq/L 10.0 - 20.0 08/09/2013 Normal [facility] CHEMISTRY B/C Ratio 11 6 - 25 08/09/2013 Normal [facility] CHEMISTRY Chloride Lvl 105 meq/L 95 - 109 08/09/2013 Normal [facility] CHEMISTRY Potassium Lvl 4.1 meq/L 3.5 - 5.1 08/09/2013 Normal [facility] CHEMISTRY Sodium Lvl 142 meq/L 135 - 145 08/09/2013 Normal [facility] CHEMISTRY eGFR 86 mL/min/1.73m2 08/09/2013 2Result Comment: The eGFR is calculated using [...] from the National Kidney Disease Education Program (NKDEP) which additionally recommends that when the eGFR is used in patients with extremes of body mass index for purposes of drug dosing, the eGFR should be multiplied by the estimated BMI. [facility] CHEMISTRY Glucose Lvl 132 mg/dL 70 - 99 08/09/2013 [place] 4Interpretive Data: Adult reference range values reflect the clinical guidelines of the [place] [employer]. [facility] CHEMISTRY ASPARTATE TRANSAMINASE 22 unit/L 0 - 37 08/09/2013 Normal [facility] CHEMISTRY Albumin Lvl 3.9 g/dL 3.5 - 5.0 08/09/2013 Normal [facility] CHEMISTRY ALANINE AMINOTRANSFERASE 32 unit/L 0 - 65 08/09/2013 Normal [facility] CHEMISTRY Alk Phos 81 unit/L 39 - 136 08/09/2013 Normal [facility] CHEMISTRY Creatinine Lvl 1.0 mg/dL 0.5 - 1.4 08/09/2013 Normal [facility] CHEMISTRY CO2 26 meq/L 24 - 32 08/09/2013 Normal [facility] CHEMISTRY Bili Total 0.3 mg/dL 0.2 - 1.3 08/09/2013 Normal [facility] CHEMISTRY BUN 11 mg/dL 7 - 22 08/09/2013 Normal [facility] CHEMISTRY Calcium Lvl 8.8 mg/dL 8.5 - 10.5 08/09/2013 Normal [facility] CHEMISTRY Total Protein 7.9 g/dL 6.4 - 8.4 08/09/2013 Normal [facility] HEMATOLOGY MCH 31.2 pg 27.0 - 31.0 08/09/2013 [facility] HEMATOLOGY MCHC 33.2 g/dL 32.0 - 36.0 08/09/2013 Normal [facility] HEMATOLOGY MCV 94.1 fL 80.0 - 94.0 08/09/2013 [facility] HEMATOLOGY RDW 13.0 % 11.5 - 14.5 08/09/2013 Normal [facility] HEMATOLOGY Platelet 345 K/CMM 133 - 450 08/09/2013 Normal [facility] HEMATOLOGY Hct 40.7 % 42.0 - 54.0 08/09/2013 LOW [facility] HEMATOLOGY RBC X 10x6 4.32 M/CMM 4.70 - 6.10 08/09/2013 LOW [facility] HEMATOLOGY Hgb 13.5 g/dL 14.0 - 18.0 08/09/2013 LOW [facility] HEMATOLOGY MPV 7.3 fL 7.4 - 10.4 08/09/2013 LOW [facility] HEMATOLOGY WBC X 10x3 16.3 K/CMM 3.7 - 10.4 08/09/2013 [facility] HEMATOLOGY Monocytes # 0.7 K/CMM 0.0 - 0.8 08/09/2013 Normal [facility] HEMATOLOGY Eosinophils # 0.2 K/CMM 0.0 - 0.5 08/09/2013 Normal [facility] HEMATOLOGY Segs-Bands # 13.5 K/CMM 1.5 - 8.1 08/09/2013 [facility] HEMATOLOGY Lymphocytes # 2.0 K/CMM 1.0 - 5.5 08/09/2013 Normal [facility] HEMATOLOGY Bands 8.0 % 0.0 - 11.0 08/09/2013 Normal [facility] HEMATOLOGY Monocytes 4.0 % 2.0 - 12.0 08/09/2013 Normal [facility] HEMATOLOGY Eosinophils 1.0 % 0.0 - 4.0 08/09/2013 Normal [facility] HEMATOLOGY Lymphocytes 12.0 % 20.0 - 40.0 08/09/2013 LOW [facility] HEMATOLOGY Segs 75.0 % 45.0 - 75.0 08/09/2013 Normal [facility] HEMATOLOGY RBC Morph Normal (08/08/2013 18:37:00) 08/09/2013 Normal [facility] HEMATOLOGY Plt Morph Normal (08/08/2013 18:37:00) 08/09/2013 Normal [facility] Scrotal testicle US and scrotal doppler Scrotal testicle US and scrotal doppler EXAM: TESTICULAR ULTRASOUND AND SCROTAL DOPPLER. CLINICAL INFORMATION: Trauma. TECHNIQUE: Hartley scale and color Doppler evaluation of the testes. [No prior study available for comparison]. FINDINGS: Nonspecific right scrotal swelling. The right testis is normal in size but mildly heterogeneous in echotexture measuring 3.4 cm x 3.0 x 3.8 cm. The right epididymis is prominent measuring 1.3 x 0.7 x 1.9 cm. Moderate complex right hydrocele with low level internal echoes. Nonspecific increase vascularity within the right testis. The left testis is normal in size and homogeneous in echotexture measuring 3.8 cm x 3.1 x 3.5 cm. The left epididymis is normal measuring 1.2 x 1.2 x 1.7 cm. Small to moderate complex left hydrocele with low level internal echoes. Small 0.7 cm x 0.4 cm x 0.9 cm left epididymal cyst is present. Left varicocele is present. Doppler evaluation demonstrates normal waveforms. No sonographic evidence of testicular torsion. IMPRESSION: 1. Nonspecific right scrotal swelling is present. Moderate complex right hydrocele with low level internal echoes. Nonspecific increase vascularity within the heterogeneous right testis may represent infection such as orchitis or inflammatory change. Please correlate clinically. Close clinical and short interval follow-up study recommended. 2. Small to moderate complex left hydrocele with low level internal echoes. Left varicocele. 3. No intratesticular mass is present. No sonographic evidence of testicular torsion. SL: 12 08/08/2013 - - Read by: Tereso Eubanks Date/time: 08/08/13 23:20 Electronically Signed by: Tereso Eubanks MD 08/08/13 23:24 FINAL REPORT [facility] Chest/Abdomen/Pelvis w IV contrast CT Chest/Abdomen/Pelvis w IV contrast CT CT CHEST, ABDOMEN, AND PELVIS WITH CONTRAST INDICATION: Trauma COMPARISON: CT chest 08/25/2010 FINDINGS: CHEST: There are mild emphysematous changes of the upper lungs. There is no consolidation, pleural effusion, or pneumothorax. No pulmonary nodules are identified. Mild secretions are noted in the lower trachea and proximal right mainstem bronchus. The heart and aorta are unremarkable. There is no mediastinal hematoma. No mediastinal, hilar, or axillary lymphadenopathy are identified. ABDOMEN: There is a subcentimeter left renal cyst. The kidneys are otherwise unremarkable. The liver, spleen, pancreas, gallbladder, and adrenal glands appear normal. The stomach and bowel loops are unremarkable. No free fluid or abnormal fluid collections are seen. No abdominal lymphadenopathy is identified. Subcutaneous fat stranding of the right lower anterior abdominal wall, left flank, and anterior pelvis is noted, possibly secondary to ecchymosis. There is mild subcutaneous emphysema of the right inguinal region and right scrotum, possibly due to laceration. PELVIS: The bladder and prostate are unremarkable. No pelvic mass or lymphadenopathy are identified. BONES: There is a chronic fracture deformity of the left clavicle. There are chronic fracture deformities of multiple left ribs. No acute fractures or dislocations are visualized. There are postoperative changes of the lumbar spine. There is a benign-appearing intramedullary lesion of the left superior pubic ramus, possibly a fibro-osseous lesion. IMPRESSION: 1. Possible ecchymosis of the abdominal and pelvic wall. There is mild subcutaneous emphysema of the right inguinal region and right scrotum, possibly due to laceration. 2. Endotracheal secretions may be secondary to aspiration. 3. Otherwise, no acute traumatic intrathoracic, intra-abdominal, or intrapelvic abnormalities are visualized. SL: 16 08/08/2013 - - Read by: Ricki Gilliam Dictated Date/time: 08/08/13 21:02 Electronically Signed by: Ricki Gilliam MD 08/08/13 21:15 FINAL REPORT [facility] Brain wo contrast CT Brain wo contrast CT CT BRAIN WITHOUT CONTRAST INDICATION: Head trauma COMPARISON: None FINDINGS: There are microangiopathic changes the white matter. There is no evidence of acute vascular insults, space occupying lesions, hemorrhage, hydrocephalus, midline shift, or extra-axial collections. The calvarium is intact. IMPRESSION: No acute intracranial abnormalities are visualized. SL: 16 08/08/2013 - - Read by: Ricki Gilliam Dictated Date/time: 08/08/13 20:44 Electronically Signed by: Ricki Gilliam MD 08/08/13 20:45 FINAL REPORT [facility] Neck soft tissue w contrast CT Neck soft tissue w contrast CT CT SOFT TISSUE NECK WITH CONTRAST INDICATION: Trauma COMPARISON: None DISCUSSION: No soft tissue hematomas are identified. The airway is patent. No masses of the upper aerodigestive tract are visualized. No suspicious cervical lymphadenopathy is seen. The thyroid, bilateral parotid and submandibular glands are unremarkable. The carotid and vertebral arteries and the jugular veins are grossly patent, without obvious vascular injury. No acute bony abnormalities are seen. The visible paranasal sinuses and mastoid air cells are clear. IMPRESSION: Unremarkable soft tissue neck CT. SL: 16 08/08/2013 - - Read by: Ricki Gilliam Dictated Date/time: 08/08/13 21:17 Electronically Signed by: Ricki Gilliam MD 08/08/13 21:22 FINAL REPORT [facility] CHEMISTRY Total CK 310 unit/L 12 - 191 08/08/2013 [place] [facility] CHEMISTRY Lactic Acid Lvl 1.2 mMol/L 0.5 - 2.2 08/08/2013 Normal [facility] IMMUNOLOGY CDC HIV 4th GEN Negative (08/08/2013 00:16:00) Negative 08/08/2013 Normal [facility] Vital Signs Vital Sign Value Date Comments Source Heart Rate 61 08/10/2013 [facility] Respitory Rate 18 08/10/2013 [facility] Diastolic (mm Hg) 68 08/10/2013 [facility] Temperature Oral (F) 98.3 F 08/10/2013 [facility] Systolic (mm Hg) 135 08/10/2013 [facility] Heart Rate 63 08/09/2013 [facility] Respitory Rate 20 08/09/2013 [facility] Diastolic (mm Hg) 84 08/09/2013 [facility] Systolic (mm Hg) 143 08/09/2013 [facility] Temperature Oral (F) 98 F 08/09/2013 [facility] Diastolic (mm Hg) 78 08/09/2013 [facility] Respitory Rate 16 08/09/2013 [facility] Systolic (mm Hg) 130 08/09/2013 [facility] Heart Rate 68 08/09/2013 [facility] Temperature Oral (F) 97.6 F 08/09/2013 [facility] Weight 86.364 08/09/2013 [facility] Height 180.34 cm 08/09/2013 [facility] Height 180.34 cm 08/09/2013 [facility] Weight 86.364 08/09/2013 [facility] Encounters Location Location Details Encounter Type Encounter Number Reason For Visit Attending Provider ADM Date DC Date Status Source [facility] OU [id number] TRAUMA, INJECTION INJURY JAZZY KARIMI 08/09/2013 08/10/2013 Active [facility] Procedures Procedure Code Date Perfomer Comments Source Anesthesia for arthroscopic procedure of knee joint<sup>1</sup> [id number] 1bilateral [facility] Procedure on back [id number] [facility]
[2018-06-01 12:49] LABS: BASOPHILS # (AUTO) 0.1 (0.0-0.1); BASOPHILS % 1.4 % (0.0-1.0); EOSINOPHILS # (AUTO) 0.3 (0.0-0.4); EOSINOPHILS % 3.6 % (0.0-6.0); HEMATOCRIT 37.6 % (38.2-49.6); MEAN CORPUSCULAR HEMOGLOBIN 26.3 pg (28-32); MEAN CORPUSCULAR HGB CONC 31.9 g/dL (31-35); MEAN CORPUSCULAR VOLUME 82.3 fL (81-99); MONOCYTES # (AUTO) 0.7 (0.2-0.8); MONOCYTES % 8.5 % (4.4-11.3); NEUTROPHILS # (AUTO) 3.8 (2.1-6.9); NEUTROPHILS % 47.7 % (38.7-80.0); PLATELET COUNT 317 x10e3/uL (140-360); RED BLOOD COUNT 4.57 x10e6/uL (4.3-5.7); RED CELL DISTRIBUTION WIDTH 18.4 % (11.7-14.4)
[2018-06-01 13:07] LABS: INR 0.85; PROTHROMBIN TIME 12.4 seconds (11.9-14.5)
[2018-06-01] MEDS ORDERED: ANUSOL-HC30 GM RC (15:29)
[2018-06-01] MEDS ORDERED: COLACE100 MG PO (15:29)
[2018-06-01 15:42] VITALS: BP 149/95
== END 2018-06-01 15:54 | disposition home or self-care (01) ==
LOC: ER 12:02
DX: K62.5 Hemorrhage of anus and rectum (principal); K64.8 Other hemorrhoids; F17.210 Nicotine dependence, cigarettes, uncomplicated
CPT/HCPCS: 36415; 85025; 85610; 86850; 86900; 99283